=== PATIENT | female | born 1930 | race Caucasian/White ===

== ENCOUNTER 2016-09-03 13:49 | Emergency (ER) ==
[2016-09-03 13:58] VITALS: BP 182/92; TEMP 97.7; BMI 26.6
[2016-09-03] MEDS ORDERED: LIDOCAINE 1 % AMP 5 ML (SUTURES) SUBCUT STA (14:09)
[2016-09-03] MEDS ORDERED: LIDOCAINE 1 % AMP 5 ML (SUTURES) ONE (14:25)
--- NOTE | 2016-09-03 14:35 | ED.PDOC ---
General ED Provider: Dr. RACHELE LAU Chief Complaint: Head Laceration Stated Complaint: head laceration Time Seen by Physician: 14:00 Information Source: Patient Exam Limitations: No limitations Primary Care Provider: JOSÉ ANTONIO GAVIRIA Nursing and Triage Documentation Reviewed and Agree: Yes Review of Systems - Review Of Systems Constitutional: Reports: No symptoms Eyes: Reports: No symptoms Ears, Nose, Mouth, Throat: Reports: No symptoms Respiratory: Reports: No symptoms Cardiac: Reports: No symptoms GI: Reports: No symptoms : Reports: No symptoms Musculoskeletal: Reports: No symptoms, Other Skin: Reports: Other (for head laceration) Neurological: Reports: No symptoms Endocrine: Reports: No symptoms Hematologic/Lymphatic: Reports: No symptoms All Other Systems: Reviewed and Negative Past Medical History - Past Medical History Previously Healthy: Yes Endocrine: Reports: Dyslipidemia Cardiovascular: Reports: None Respiratory: Reports: None Hematological: Reports: None Gastrointestinal: Reports: None Genitourinary: Reports: None Neuro/Psych: Reports: None Musculoskeletal: Reports: None Cancer: Reports: None Last Menstrual Period: N/A - Surgical History General Surgical History: Reports: None - Family History Family History: Reports: None - Social History Smoking Status: Never smoker Hx Substance Use: No Alcohol Screening: None - Immunizations Tetanus Shot up to Date: No Physical Exam - Physical Exam Appearance: Well-appearing, No pain distress, Well-nourished Eyes: FIFI, EOMI, Conjunctiva clear ENT: Ears normal, Nose normal, Oropharynx normal Respiratory: Airway patent, Breath sounds clear, Breath sounds equal, Respirations nonlabored Cardiovascular: RRR, Pulses normal, No rub, No murmur GI/: Soft, Nontender, No masses, Bowel sounds normal, No Organomegaly Musculoskeletal: Normal strength, ROM intact, No edema, No calf tenderness Skin: Warm, Dry, Normal color Neurological: Sensation intact, Motor intact, Reflexes intact, Cranial nerves intact, Alert, Oriented Psychiatric: Affect appropriate, Mood appropriate Procedures - Laceration/Wound Repair No standard instances Wound Description: Linear Wound Length (cm): 5 cm Wound Width: 3mm Wound Depth: 2mm Wound Explored: Clean Wound Irrigated: No Wound Prep: Hibiclens Anesthesia: Lidocaine (2 ml) Undermining: Minimal Wound Margins: Vermilion border aligned Wound Repaired With: Sutures Suture Size and Type: 3 prolene Number of Sutures: 12 Number of Xenia: 0 Layer Closure?: No Critical Care Note - Critical Care Note Total Time (mins): 0 Course - Course Orders, Labs, Meds: Orders Category Date Time Status Lidocaine HCl/Pf [Lidocaine 1 % Amp 5 ml (Sutures)] MEDS 09/03/16 14:25 Discontinued 5 ml .ROUTE .STK-MED ONE Lidocaine HCl/Pf [Lidocaine 1 % Amp 5 ml (Sutures)] MEDS 09/03/16 14:09 Stat 5 ml SUBCUT ONCE STA CT CERVICAL SPINE W/O CONTRAST Stat RADS 09/03/16 14:[address] HEAD W/O CONTRAST Stat RADS 09/03/16 14:09 Ordered Medications Discontinued Medications Generic Name Dose Route Start Last Admin Trade Name Freq PRN Reason Stop Dose Admin Lidocaine HCl 5 ml 09/03/16 14:09 09/03/16 14:33 Lidocaine 1 % Amp 5 Ml (Sutures) SUBCUT 09/03/16 14:10 5 ml ONCE STA Administration Vital Signs: Temp Pulse Resp BP Pulse Ox 09/03/16 13:49 97.7 F 105 H 220 H 182/92 H 95 Departure - Departure Time of Disposition: 03:30 Disposition: HOME SELF-CARE Discharge Problem: Laceration of forehead Qualifiers: Encounter type: initial encounter Qualifier Code: (S01.81XA) Laceration without foreign body of other part of head, initial encounter Closed head injury Qualifiers: Encounter type: initial encounter Qualifier Code: (S09.90XA) Unspecified injury of head, initial encounter Instructions: Head Injury (ED), Laceration (ED) Condition: Good Pt referred to PMD for follow-up: No Additional Instructions: Please call your Family Physician as soon as possible to schedule a follow-up appointment. Allergies/Adverse Reactions: Allergies No Known Allergies Allergy (Unverified 09/03/16 14:00) Home Medications: Ambulatory Orders Aspirin [Aspirin EC] 81 mg PO DAILY 11/06/12 Pravastatin Sodium [Pravachol] 20 mg PO DAILY 11/06/12
--- NOTE | 2016-09-03 15:08 | CT ---
EXAM: CT BRAIN HISTORY: Fall TECHNIQUE: CT brain without intravenous contrast. 5-mm axial sections with Reformations. COMPARISON: None FINDINGS: There is generalized atrophy and at least mild chronic microvascular ischemic change. Early basil g anglia calcification. Brain otherwise is unremarkable without distinct evidence of hemorrhage or lar ge vessel distribution recent ischemic infarction. There is no suggestion of acute hydrocephalus or subdural fluid collection. No mass or mass effect. No skull fracture. Mild mucosal thickening in the a few areas of the visualized paranasal sinuses. Mastoid air cells are aerated. There is a right frontal peripheral scalp contusion. IMPRESSION: 1. No acute intracranial process or injury identified. No skull fracture. 2. Right frontal scalp contusion. 3. Minimal chronic sinusitis.
--- NOTE | 2016-09-03 15:29 | CT ---
EXAM: CT of the cervical spine without contrast History: Head and neck trauma. Technique: Multiplanar CT images through the cervical spine were obtained without the administratio n of IV contrast Findings: The visualized lung apices are free of consolidation. Biapical lung scarring. Bilateral thyroid nodules with the largest seen in the right thyroid measuring 2 cm. The visualized airway r emains patent. Osteopenia. No acute fracture. Minimal anterolisthesis of C5 on C6. Mild multilevel degenerative disc space narrowing. No prevertebral soft tissue swelling. Predental space is not widened. Multil evel bilateral bony neural foraminal narrowing secondary to uncovertebral and facet hypertrophy. Impression: 1. No acute osseous abnormality of the cervical spine. 2. Bilateral thyroid nodules.
== END 2016-09-03 15:35 | disposition home or self-care (01) ==
LOC: ED 13:49
DX: S01.81XA Laceration without foreign body of other part of head, initial encounter (principal); S09.90XA Unspecified injury of head, initial encounter; W19.XXXA Unspecified fall, initial encounter
CPT/HCPCS: 99283

== ENCOUNTER 2020-03-05 09:09 | Inpatient (IN) ==
--- NOTE | 2020-03-05 09:34 | ED.PDOC ---
General ED Provider: Dr. WOLF HUGHES Chief Complaint: Urinary Problem Stated Complaint: States note blood in her urine Last evening. Denies urinary burning, urgency or frequency. Denies flank or suprapubic pain. Denies previous related problems. Time Seen by Physician: 09:20 Mode of Arrival: Walk-In Information Source: Patient Exam Limitations: No limitations Primary Care Provider: JOSÉ ANTONIO GAVIRIA Nursing and Triage Documentation Reviewed and Agree: Yes Does patient meet sepsis criteria?: No If yes, has appropriate treatment been initiated?: No System Inflammatory Response Syndrome: Not Applicable Sepsis Protocol: For patient's 13 years and over: Temp is 96.8 and below OR 101 and greater Pulse >90 BPM Resp >20/minute Acutely Altered Mental Status Are patient's symptoms suggestive of a new infection, such as: -Pneumonia -Skin, Soft Tissue -Endocarditis -UTI -Bone, Joint Infection -Implantable Device -Acute Abdominal Infection -Wound Infection -Meningitis -Blood Stream Catheter Infection -Unknown Complaint Exam UTI Female Complaint/Exam Patient Complains of: Reports Blood in urine Onset/Duration: last evening Symptoms Are: Still present Timing: Intermittent Initial Severity: Moderate Current Severity: Mild Location of Pain: Reports None Associated Signs and Symptoms: Reports Fever, Chills, Flank pain, Dyspareunia and Vaginal discharge Related History: Denies Similar episode Related Surgical History: Reports None CVA Tenderness: No Suprapubic Tenderness: No Review of Systems Review Of Systems Constitutional: Reports No symptoms Eyes: Reports No symptoms Ears, Nose, Mouth, Throat: Reports No symptoms Respiratory: Reports No symptoms Cardiac: Reports No symptoms GI: Reports No symptoms : Reports No symptoms Musculoskeletal: Reports No symptoms Skin: Reports No symptoms Neurological: Reports No symptoms Endocrine: Reports No symptoms Hematologic/Lymphatic: Reports No symptoms All Other Systems: Reviewed and Negative [facility] Female Reproductive History Menstrual Hx Hysterectomy: No Hx Tubal Ligation: No Physical Exam Physical Exam Appearance: Reports Well-appearing and No pain distress Ill-appearing: None Pain Distress: None Eyes: Reports FIFI, EOMI and Conjunctiva clear ENT: Reports Ears normal, Nose normal and Oropharynx normal Respiratory: Reports Airway patent, Breath sounds clear, Breath sounds equal and Respirations nonlabored Cardiovascular: Reports RRR, Pulses normal, No rub and No murmur GI/: Reports Soft, Nontender, No masses, Bowel sounds normal and No Organomegaly Musculoskeletal: Reports Normal strength, ROM intact, No edema and No calf tenderness Skin: Reports Warm, Dry and Normal color Neurological: Reports Sensation intact, Motor intact, Reflexes intact, Cranial nerves intact, Alert and Oriented Psychiatric: Reports Affect appropriate and Mood appropriate Interpretation Radiology Interpretation Exam Interpreted: CXR and CT Scan (There is no ureteral obstruction. There is suspicion for a small soft tissue mass lesion seen along the posterior right side of the urinary bladder. Further evaluation is recommended using a CT scan of the abdomen and pelvis urogram protocol. Diverticular disease of the sigmoid colon without ac) Xray Comments: WNL EKG Interpretation Time of EKG #1: 10:40 Rate: Tachy Rhythm: Sinus Ectopy: None ST Segment: Normal Interpretation: sinus tachycardia Physician Notification Case Discussed Physician Notified: Dr Gaviria: [id number]; Discussed case, Recommendations made/admit Course Course Hematology/Chemistry: 03/05/20 10:00 03/05/20 10:00 Orders, Labs, Meds: Lab Review 03/05/20 03/05/20 03/05/20 09:34 10:00 10:00 WBC 8.55 RBC 3.90 L Hgb 11.8 L Hct 36.6 L MCV 93.8 MCH 30.3 MCHC 32.2 RDW Coeff of Sheron 12.4 Plt Count 182 Immature Gran % (Auto) 0.4 Neut % (Auto) 73.5 Lymph % (Auto) 18.2 [place] % (Auto) 6.7 Eos % (Auto) 0.8 Baso % (Auto) 0.4 Neut # (Auto) 6.3 Lymph # (Auto) 1.6 [place] # (Auto) 0.6 Eos # (Auto) 0.1 Baso # (Auto) 0.0 Immature Gran # (Auto) 0.0 PT INR APTT Sodium 129.5 L Potassium 4.62 Chloride 95.8 L Carbon Dioxide 22.4 Anion Gap 15.92 BUN 27.9 H Creatinine 1.09 Estimated GFR (MDRD) 47.00 BUN/Creatinine Ratio 25.59 Glucose 120.2 H Calcium 9.04 Total Bilirubin 0.47 AST 35.8 ALT 18.4 Alkaline Phosphatase 100.4 Total Protein 7.73 Albumin 4.29 Globulin 3.44 Albumin/Globulin Ratio 1.24 Urine Color Red Urine Clarity Slightly Urine pH 7.0 Ur Specific [place] 1.020 Urine Protein 2+ H Urine Glucose (UA) Negative Urine Ketones Negative Urine Blood 3+ H Urine Nitrite Negative Urine Bilirubin Negative Urine Urobilinogen 0.2 Ur Leukocyte Esterase Negative Urine Microscopic RBC Tntc Urine Microscopic WBC 2-5 Ur Squamous Epith Cells 0-2 03/05/20 10:00 WBC RBC Hgb Hct MCV MCH MCHC RDW Coeff of Sheron Plt Count Immature Gran % (Auto) Neut % (Auto) Lymph % (Auto) [place] % (Auto) Eos % (Auto) Baso % (Auto) Neut # (Auto) Lymph # (Auto) [place] # (Auto) Eos # (Auto) Baso # (Auto) Immature Gran # (Auto) PT 9.6 INR 0.98 APTT 25.6 Sodium Potassium Chloride Carbon Dioxide Anion Gap BUN Creatinine Estimated GFR (MDRD) BUN/Creatinine Ratio Glucose Calcium Total Bilirubin AST ALT Alkaline Phosphatase Total Protein Albumin Globulin Albumin/Globulin Ratio Urine Color Urine Clarity Urine pH Ur Specific [place] Urine Protein Urine Glucose (UA) Urine Ketones Urine Blood Urine Nitrite Urine Bilirubin Urine Urobilinogen Ur Leukocyte Esterase Urine Microscopic RBC Urine Microscopic WBC Ur Squamous Epith Cells Orders Category Date Time Status EKG-(ED ONLY) Stat CARDIO 03/05/20 09:42 Completed IV [ED IV/MEDIPORT/POWERPORT] .ONCE EMERGENCY 03/05/20 09:45 Active CBC W/ AUTO DIFF Stat LAB 03/05/20 10:00 Completed CMP [COMPREHENSIVE METABOLIC PANEL] Stat LAB 03/05/20 10:00 Completed PARTIAL THROMBOPLASTIN TIME Stat LAB 03/05/20 10:00 Completed PT WITH INR Stat LAB 03/05/20 10:00 Completed UA [URINALYSIS C & S IF INDICATED] Stat LAB 03/05/20 09:34 Completed 0.9 % Sodium Chloride [Saline Flush] MEDS 03/05/20 09:44 Active 1 syr IVF PRN PRN Hydralazine HCl [Apresoline] MEDS 03/05/20 10:48 Discontinued 25 mg PO ONCE STA Labetalol HCl [Trandate] MEDS 03/05/20 11:42 Discontinued 10 mg IVP ONCE STA Sodium Chloride 0.9% [Sodium Chloride] 1,000 ml MEDS 03/06/20 09:00 Ordered IV DAILY CHEST, 2 VIEWS PA & LAT Stat RADS 03/05/20 09:[address] ABD/PEL WO RENAL STONE PROT Stat RADS 03/05/20 09:42 Completed Medications Generic Name Dose Route Start Last Admin Trade Name Freq PRN Reason Stop Dose Admin Sodium Chloride 1,000 mls @ 75 mls/hr 03/06/20 09:00 Sodium Chloride IV DAILY LIDIA Sodium Chloride 1 syr 03/05/20 09:44 0.9% Sodium Chloride 10 Ml Disp.Syrin IVF PRN PRN To flush IV Discontinued Medications Generic Name Dose Route Start Last Admin Trade Name Freq PRN Reason Stop Dose Admin Hydralazine HCl 25 mg 03/05/20 10:48 03/05/20 10:55 Hydralazine Hcl 50 Mg Tablet PO 03/05/20 10:49 25 mg ONCE STA Administration Labetalol HCl 10 mg 03/05/20 11:42 Labetalol Hcl 100 Mg/20 Ml Mdv IVP 03/05/20 11:43 ONCE STA Vital Signs: Temp Pulse Resp BP Pulse Ox 03/05/20 09:29 249/132 H 03/05/20 09:09 96.3 F L 108 H 17 236/114 H 96 Discharge Plan Discharge Prescriptions: No Action pravastatin 20 MG tablet 20 mg PO DAILY RF: 0 ED Provider: WOLF HUGHES Physician Progress Note: Monitored patient after resting for 30 -60 min. Asymptomatic. BP 210/120 []
[2020-03-05 09:38] LABS: BILIRUBIN,URINE Negative (NEGATIVE); CLARITY,URINE Slightly (CLEAR); COLOR,URINE Red (YELLOW); GLUCOSE, URINE (UA) Negative (NEGATIVE); KETONES,URINE Negative (NEGATIVE); LEUKOCYTE ESTERASE ,URINE Negative (NEGATIVE); NITRITE,URINE Negative (NEGATIVE); PROTEIN,URINE 2+ (NEGATIVE); URINE, BLOOD 3+ (NEGATIVE); UROBILINOGEN,URINE 0.2 (0.2)
[2020-03-05 09:52] LABS: SQUAMOUS EPITHELIAL CELL,UR 0-2 (0-5); URINE RBC, MICROSCOPIC TNTC (0-2)
[2020-03-05 10:02] LABS: BASOPHILS % (AUTO) 0.4 % (0.0-3.0); EOSINOPHILS # (AUTO) 0.1 K/ul (0.0-0.7); EOSINOPHILS % (AUTO) 0.8 % (0.0-7.0); HEMATOCRIT 36.6 % (37.0-47.0); HEMOGLOBIN 11.8 g/dl (12.0-16.0); IMMATURE GRANULOCYTE % (AUTO) 0.4 % (0.0-5.0); LYMPHOCYTES # (AUTO) 1.6 K/uL (0.60-3.4); LYMPHOCYTES % (AUTO) 18.2 (10.0-50.0); MEAN CORPUSCULAR HEMOGLOBIN 30.3 pg (27.0-31.0); MEAN CORPUSCULAR HGB CONC 32.2 (31.8-35.4); MEAN CORPUSCULAR VOLUME 93.8 fl (81.0-99.0); MONOCYTES # (AUTO) 0.6 K/uL (0.4-2.0); MONOCYTES % (AUTO) 6.7 (0-10); NEUTROPHILS # (AUTO) 6.3 K/ul (2.0-6.9); NEUTROPHILS % (AUTO) 73.5 % (42.2-75.2); PLATELET COUNT 182 10^3/uL (140-440); RDW COEFFICIENT OF VARIATION 12.4 % (11.6-14.8); WHITE BLOOD COUNT 8.55 K/ul (4.6-10.2)
[2020-03-05 10:14] LABS: ALANINE AMINOTRANSFERASE 18.4 U/L (0-35); ALBUMIN 4.29 g/dL (3.5-5.0); ALKALINE PHOSPHATASE 100.4 U/L (53-141); ASPARTATE AMINO TRANSFERASE 35.8 U/L (14-36); BILIRUBIN,TOTAL 0.47 mg/dL (0.2-1.3); BLOOD UREA NITROGEN 27.9 mg/dL (7-17); CALCIUM 9.04 mg/dL (8.4-10.2); CARBON DIOXIDE 22.4 mmol/L (22-30.0); CHLORIDE 95.8 mmol/L (98-107); CREATININE 1.09 mg/dL (0.60-1.30); GLUCOSE 120.2 mg/dL (74-106); POTASSIUM 4.62 mmol/L (3.5-5.1); SODIUM 129.5 mmol/L (134.5-145); TOTAL PROTEIN 7.73 g/dL (6.3-8.2)
[2020-03-05 10:16] LABS: PARTIAL THROMBOPLASTIN TIME 25.6 SEC (23.9-40.0); PROTHROMBIN TIME 9.6 SEC (9.3-11.0)
--- NOTE | 2020-03-05 10:44 | CT ---
EXAM: CT scan of the abdomen and pelvis without contrast HISTORY: Hematuria TECHNIQUE: Helical imaging of the abdomen and pelvis was performed without contrast. 3 mm thin axia l images and coronal and sagittal reconstructions were provided for interpretation. FINDINGS: The liver, spleen, pancreas, kidneys appear normal. The proximal ureters are normal size. Multiple cysts are seen throughout the kidneys. The small and large bowel loops are normal caliber . There is no free air. There is no free fluid seen within the pelvis. There is suspicion for a focus of soft tissue thicken ing along the posterior right corner of the urinary bladder. The findings are seen on axial image nu mber [id number]. The findings measure approximately 2.1 cm transverse, 1.4 cm AP. Numerous diverticula are seen throughout the sigmoid colon without acute inflammation. The appendix appears normal. Lung ba ses are clear. No lytic or blastic lesions are seen within the osseous structures. IMPRESSION: There is no ureteral obstruction. There is suspicion for a small soft tissue mass lesion seen along the posterior right side of the uri nary bladder. Further evaluation is recommended using a CT scan of the abdomen and pelvis urogram pr otocol. Diverticular disease of the sigmoid colon without acute inflammation.
--- NOTE | 2020-03-05 10:47 | DI ---
EXAM: Two-view chest HISTORY: Hypertension TECHNIQUE: Frontal and lateral views of the chest were obtained. FINDINGS: The heart is normal size. Lungs are clear. The pulmonary vasculature appears normal. Th e costophrenic angles are sharp. IMPRESSION: No active cardiopulmonary disease.
[2020-03-05] MEDS ORDERED: APRESOLINE PO STA (10:48)
[2020-03-05] MEDS ORDERED: TRANDATE IVP STA (11:42)
[2020-03-05] MEDS ORDERED: VASOTEC IV IVP STA (11:55)
[2020-03-05] MEDS: SODIUM CHLORIDE 1,000 ML IV SCH ×3 (12:19→23:44)
[2020-03-05] MEDS ORDERED: ZOFRAN 4 MG/2 ML IVP PRN ×2 (12:24→21:55)
[2020-03-05] MEDS ORDERED: TYLENOL PO PRN (12:24)
[2020-03-05] MEDS ORDERED: TRANDATE ONE ×2 (12:55→12:57)
[2020-03-05] MEDS ORDERED: TRANDATE 100 MG in SODIUM CHLORIDE 80 ML IV SCH (13:00)
[2020-03-05 14:24] VITALS: BMI 12.4
[2020-03-05] MEDS ORDERED: TRANDATE PO STA (16:06)
[2020-03-05] MEDS: VASOTEC IV IVP PRN (18:09)
[2020-03-05] MEDS: TRANDATE PO SCH (21:13)
[2020-03-05] MEDS ORDERED: XANAX PO STA (21:51)
[2020-03-05] MEDS ORDERED: NORVASC PO ONE (21:56)
[2020-03-06] MEDS: VASOTEC IV IVP PRN (00:20)
[2020-03-06] MEDS ORDERED: CATAPRES PO STA (01:48)
[2020-03-06] MEDS ORDERED: TRANDATE 100 MG in SODIUM CHLORIDE 80 ML IV SCH (01:54)
[2020-03-06] MEDS ORDERED: TRANDATE ONE (02:08)
[2020-03-06] MEDS ORDERED: CATAPRES PO PRN (04:14)
[2020-03-06 05:11] VITALS: TEMP 97.7
[2020-03-06 06:39] LABS: BASOPHILS % (AUTO) 0.1 % (0.0-3.0); EOSINOPHILS % (AUTO) 0.1 % (0.0-7.0); HEMATOCRIT 31.8 % (37.0-47.0); HEMOGLOBIN 10.9 g/dl (12.0-16.0); IMMATURE GRANULOCYTE % (AUTO) 0.3 % (0.0-5.0); LYMPHOCYTES # (AUTO) 0.9 K/uL (0.60-3.4); LYMPHOCYTES % (AUTO) 6.2 (10.0-50.0); MEAN CORPUSCULAR HEMOGLOBIN 30.2 pg (27.0-31.0); MEAN CORPUSCULAR HGB CONC 34.3 (31.8-35.4); MEAN CORPUSCULAR VOLUME 88.1 fl (81.0-99.0); MONOCYTES # (AUTO) 0.9 K/uL (0.4-2.0); MONOCYTES % (AUTO) 6.1 (0-10); NEUTROPHILS # (AUTO) 12.6 K/ul (2.0-6.9); NEUTROPHILS % (AUTO) 87.2 % (42.2-75.2); PLATELET COUNT 164 10^3/uL (140-440); RDW COEFFICIENT OF VARIATION 11.9 % (11.6-14.8); RED BLOOD COUNT 3.61 10^6/ul (4.20-5.40); WHITE BLOOD COUNT 14.39 K/ul (4.6-10.2)
[2020-03-06 06:50] LABS: ALANINE AMINOTRANSFERASE 18.6 U/L (0-35); ALBUMIN 4.07 g/dL (3.5-5.0); ALKALINE PHOSPHATASE 94.2 U/L (53-141); ASPARTATE AMINO TRANSFERASE 43.1 U/L (14-36); BILIRUBIN,TOTAL 0.71 mg/dL (0.2-1.3); BLOOD UREA NITROGEN 20.6 mg/dL (7-17); CALCIUM 9.16 mg/dL (8.4-10.2); CARBON DIOXIDE 22.4 mmol/L (22-30.0); CHLORIDE 88.8 mmol/L (98-107); CREATININE 0.96 mg/dL (0.60-1.30); GLUCOSE 135.3 mg/dL (74-106); POTASSIUM 3.87 mmol/L (3.5-5.1); SODIUM 120.6 mmol/L (134.5-145); TOTAL PROTEIN 7.33 g/dL (6.3-8.2)
[2020-03-06 07:21] LABS: THYROID STIMULATING HORMONE 2.06 uIU/L (0.465-4.68)
[2020-03-06] MEDS ORDERED: CATAPRES PO SCH (09:00)
[2020-03-06] MEDS ORDERED: PRAVACHOL PO SCH (09:00)
[2020-03-06] MEDS ORDERED: COZAAR PO SCH (09:00)
[2020-03-06 09:45] LABS: HEMOGLOBIN 9.8 g/dl (12.0-16.0); IMMATURE GRANULOCYTE # (AUTO) 0.1 (0.0-1.0); IMMATURE GRANULOCYTE % (AUTO) 0.4 % (0.0-5.0); LYMPHOCYTES # (AUTO) 0.9 K/uL (0.60-3.4); MEAN CORPUSCULAR HGB CONC 33.8 (31.8-35.4); MEAN CORPUSCULAR VOLUME 88.7 fl (81.0-99.0); MONOCYTES # (AUTO) 0.7 K/uL (0.4-2.0); MONOCYTES % (AUTO) 6.6 (0-10); NEUTROPHILS # (AUTO) 9.5 K/ul (2.0-6.9); PLATELET COUNT 155 10^3/uL (140-440); RDW COEFFICIENT OF VARIATION 11.9 % (11.6-14.8); RED BLOOD COUNT 3.27 10^6/ul (4.20-5.40); WHITE BLOOD COUNT 11.19 K/ul (4.6-10.2)
[2020-03-06] MEDS: XANAX PO SCH ×2 (09:56→20:10)
[2020-03-06] MEDS: TRANDATE PO SCH ×2 (09:56→20:10)
[2020-03-06 09:59] LABS: ALANINE AMINOTRANSFERASE 15.1 U/L (0-35); ALBUMIN 2.99 g/dL (3.5-5.0); ALKALINE PHOSPHATASE 69.4 U/L (53-141); ASPARTATE AMINO TRANSFERASE 35.1 U/L (14-36); BILIRUBIN,TOTAL 0.54 mg/dL (0.2-1.3); BLOOD UREA NITROGEN 18.6 mg/dL (7-17); CALCIUM 7.18 mg/dL (8.4-10.2); CARBON DIOXIDE 19.6 mmol/L (22-30.0); CHLORIDE 96.6 mmol/L (98-107); CREATININE 0.82 mg/dL (0.60-1.30); GLUCOSE 102.8 mg/dL (74-106); POTASSIUM 3.16 mmol/L (3.5-5.1); SODIUM 124.5 mmol/L (134.5-145); TOTAL PROTEIN 5.82 g/dL (6.3-8.2)
--- NOTE | 2020-03-06 11:05 | PCM.PROG ---
Attending Provider: ATTENDING PROVIDER: Dr. JOSÉ ANTONIO GAVIRIA This patient is seen with Cassy Ortega, Nurse Practitioner. DATE OF SERVICE: 03/06/20 SUBJECTIVE: This 89 year old /WHITE F was hospitalized 03/05/20. The patient is resting comfortably. The patient states she has had blood in urine the last week at home. Sodium dropped today to 120. Kidney function is stable. Blood pressure is up through the night which required IV Labetalol. This morning her blood pressure is 128/65. REVIEW OF SYSTEMS: CONSTITUTIONAL: No night sweats. No fatigue, malaise, lethargy. No fever or chills. Weakness. HEENT: Eyes: No visual changes. No eye pain. No eye discharge. ENT: No runny nose. No epistaxis. No sinus pain. No odynophagia. No congestion. RESPIRATORY: No cough, no congestion. No hemoptysis. No shortness of breath. CARDIOVASCULAR: No angina symptoms. No CHF symptoms. No atypical chest pain for CAD. No palpitations. No orthopnea.. GASTROINTESTINAL: No abdominal pain. No nausea or vomiting. No diarrhea or constipation. No hematemesis. No hematochezia. GENITOURINARY: No urgency. No frequency. No dysuria. Hematuria. No obstructive symptoms. No discharge. No pain. No significant abnormal bleeding. MUSCULOSKELETAL: No musculoskeletal pain; no joint swelling. NEUROLOGICAL: Awake, alert, oriented to time, place and person. No headache. No neck pain. No syncope. No seizures. No dizziness. PSYCHIATRIC: Not anxious. No depression. No suicidal thoughts. No homicidal t houghts. SKIN: No rash. No lesions. No wounds. ENDOCRINE: No unexplained weight loss. No weight gain. HEMATOLOGIC/LYMPHATIC: No anemia. No purpura. No petechiae. No prolonged or excessive bleeding. No palpable lymph nodes. PHYSICAL EXAMINATION: GENERAL: The patient is awake, alert and oriented, lying in bed in no distress. VITAL SIGNS: Temperature 97.7 F, Pulse 76, Respiratory Rate 22, BP 128/65, Pulse Ox 95% HEENT: Head normocephalic, atraumatic. Eyes: Extraocular muscles are intact. Pupils are equal, round and reactive to light and accommodation. Ears: No lesions. Nose appeared normal. Throat: No exudate or erythema. NECK: Supple. No JVD, no carotid bruit. No lymphadenopathy or thyromegaly. LUNGS: Diminished breath sounds. Clear to auscultation. Percussion note normal. Chest symmetrical. HEART: S1, S2, no S3. No murmurs. No cyanosis or clubbing. No ascites. Pulses: Dorsalis pedis and posterior tibial pulses +1 to +2 both sides. ABDOMEN: Soft. Non-tender. Bowel sounds active. No CVA tenderness. No mass felt. EXTREMITIES: No edema. Full range of motion of all extremities, equal. NEUROLOGIC: No focal deficit. Cranial nerves II through XII are grossly intact. No headache, no double vision or headache. SKIN: Not dry. Intact. Turgor-normal. LYMPHATIC: No palpable lymph nodes/no lymphedema. MUSCULOSKELETAL: Normal joints with no swelling. Muscle tone is normal. LAB REVIEW: 03/06/20 05:25 03/06/20 05:25 03/06/20 05:25: Sodium 120.6 L, Potassium 3.87, Chloride 88.8 L, Carbon Dioxide 22.4, Anion Gap 13.27, BUN 20.6 H, Creatinine 0.96, Estimated GFR (MDRD) 55.00, BUN/Creatinine Ratio 21.45, Glucose 135.3 H, Calcium 9.16, Total Bilirubin 0.71, AST 43.1 H, ALT 18.6, Alkaline Phosphatase 94.2, Total Protein 7.33, Albumin 4.07, Globulin 3.26, Albumin/Globulin Ratio 1.24, TSH 2.060 03/06/20 05:25: WBC 14.39 H D, RBC 3.61 L, Hgb 10.9 L, Hct 31.8 L, MCV 88.1 D, MCH 30.2, MCHC 34.3, RDW Coeff of Sheron 11.9, Plt Count 164, Immature Gran % (Auto) 0.3, Neut % (Auto) 87.2 H, Lymph % (Auto) 6.2 L, [place] % (Auto) 6.1, Eos % (Auto) 0.1, Baso % (Auto) 0.1, Neut # (Auto) 12.6 H, Lymph # (Auto) 0.9, [place] # (Auto) 0.9, Eos # (Auto) 0.0, Baso # (Auto) 0.0, Immature Gran # (Auto) 0.0 03/05/20 10:00: PT 9.6, INR 0.98, APTT 25.6 03/05/20 10:00: Sodium 129.5 L, Potassium 4.62, Chloride 95.8 L, Carbon Dioxide 22.4, Anion Gap 15.92, BUN 27.9 H, Creatinine 1.09, Estimated GFR (MDRD) 47.00, BUN/Creatinine Ratio 25.59, Glucose 120.2 H, Calcium 9.04, Total Bilirubin 0.47, AST 35.8, ALT 18.4, Alkaline Phosphatase 100.4, Total Protein 7.73, Albumin 4.29, Globulin 3.44, Albumin/Globulin Ratio 1.24 03/05/20 10:00: WBC 8.55, RBC 3.90 L, Hgb 11.8 L, Hct 36.6 L, MCV 93.8, MCH 30.3, MCHC 32.2, RDW Coeff of Sheron 12.4, Plt Count 182, Immature Gran % (Auto) 0.4, Neut % (Auto) 73.5, Lymph % (Auto) 18.2, [place] % (Auto) 6.7, Eos % (Auto) 0.8, Baso % (Auto) 0.4, Neut # (Auto) 6.3, Lymph # (Auto) 1.6, [place] # (Auto) 0.6, Eos # (Auto) 0.1, Baso # (Auto) 0.0, Immature Gran # (Auto) 0.0 03/05/20 09:34: Urine Color Red, Urine Clarity Slightly, Urine pH 7.0, Ur Specific [place] 1.020, Urine Protein 2+ H, Urine Glucose (UA) Negative, Urine Ketones Negative, Urine Blood 3+ H, Urine Nitrite Negative, Urine Bilirubin Negative, Urine Urobilinogen 0.2, Ur Leukocyte Esterase Negative, Urine Microscopic RBC Tntc, Urine Microscopic WBC 2-5, Ur Squamous Epith Cells 0-2 ASSESSMENT: Please see below. 1. Hematuria 2. Lesion on bladder per CT 3. Hyponatremia 4. Uncontrolled hypertension 5. Dyslipidemia PLAN: 1. Increase fluids to 75cc 2. Will discuss with radiology further test for renal arteries and bladder. 3. Restart PO Labetalol Plan and coordination of the patient's care discussed in the presence of Prosthetics Assistant and nurse. SCRIBED BY: MARYAN EARLY Obstetrics Nurse scribed while in presence of service performed by Dr. Gaviria/Cassy Ortega APRN on 03/06/20 ([id number])
[2020-03-06] MEDS: SODIUM CHLORIDE 1,000 ML IV SCH ×3 (12:56→19:30)
--- NOTE | 2020-03-06 13:23 | CT ---
EXAM: CT of the abdomen and pelvis with and without contrast (CT urogram) History: Hematuria, bladder mass. Comparison: CT abdomen pelvis 03/05/2020 Technique: Multiplanar CT images through the abdomen pelvis were obtained with and without the admin istration of IV contrast. MIP images and 3-D reconstructions were also acquired. Findings: Lung bases are free of consolidation. Trace bilateral pleural effusions. No acute osseou s abnormalities. Degenerative changes of the spine. There is reflux of contrast into the IVC and hepatic veins. No gallstones identified by CT. No karri l stones. Bilateral renal cysts are again seen. Moderate right hydronephrosis again identified. No obstructing ureteral calculi. The bladder is distended. 2.2 cm mass or hematoma at the right base of the bladder. Atherosclerotic vascular calcifications. Mild to moderate narrowing of the proximal left renal artery and mild narrowing of the proximal right renal artery with calcific plaque. No ministerio wel obstruction. No free air and no ascites. The uterus is atrophic. No perirectal inflammation. Scattered colonic stool. Colonic diverticulosis. The appendix is normal. The pancreas and adrenal glands are unremarkable. No free air and no ascites. No pathologically enlarged lymph nodes. Impression: 1. Intraluminal bladder hematoma or soft tissue bladder mass. Recommend cystoscopy. 2. Persistent moderate right hydronephrosis could be related to a bladder tumor or ureteral mass. A lso recommend direct visualization. 3. Colonic diverticulosis. 4. Distended bladder. 5. Reflux of contrast into the IVC and hepatic veins could indicate some degree of right heart strai n.
--- NOTE | 2020-03-06 14:43 | PN ---
DATE OF SERVICE: 03/05/20 SUBJECTIVE: The patient was admitted through the emergency room with hematuria. The patient's other problem is hypertensive urgency. Blood pressure was recorded as more than 240. The patient was given Hydralazine 25 in the emergency room and then later on Trandate IV drip. The patient's blood pressure on the floor was recorded as 190. Continue the IV Trandate and put her on Trandate 100 mg b.i.d. along with Vasotec to be given 1.25 mg IV q.6hr for systolic blood pressure 150. She will be given Amlodipine 5 mg p.o. tonight and she will be started on 50 mg of Losartan q.a.m. The patient's cardiovascular status is stable with no evidence of CHF or coronary insufficiency, probably has a soft mass adjacent to her urinary bladder. Dr. Gutiérrez has already been called. He will see the patient probably on . The patient's cardiovascular and respiratory status stable for now. The patient has no signs or symptoms of Covid-19. Condition is otherwise stable TIME SPENT: More than 30 minutes. Plan and coordination of the patient's care discussed in the presence of nurse. NANCY
--- NOTE | 2020-03-06 15:00 | HP ---
DATE OF SERVICE: 03/05/20 HISTORY OF PRESENT ILLNESS: This is an 89-year-old white female who states she has had blood in her urine off and on for the past week. Denies any dysuria, urgency or frequency. Denies any flank or suprapubic pain. No history of kidney stones. The patient is confused today which is not her baseline. PAST MEDICAL HISTORY: Chronic anemia Chronic kidney disease, Stage 2 to 3; she has previously refused a nephrologic referral Insomnia and anxiety History of thyroid nodule; she refuses ultrasound or referral to endocrinology Dyslipidemia GERD Hypertension PAST SURGICAL HISTORY: Thyroid nodule, biopsy [place] [address] Zhao. She has refused any further evaluation. REVIEW OF SYSTEMS: CONSTITUTIONAL: No night sweats. No fatigue, malaise, lethargy. No fever or chills. HEENT: Eyes: No visual changes. No eye pain. No eye discharge. ENT: No runny nose. No epistaxis. No sinus pain. No sore throat. No odynophagia. No ear pain. No congestion. RESPIRATORY: No cough, no congestion. No hemoptysis. No shortness of breath. CARDIOVASCULAR: No angina symptoms. No CHF symptoms. No atypical chest pain for CAD. No palpitations. No PND. No orthopnea. GASTROINTESTINAL: No abdominal pain. No nausea or vomiting. No diarrhea or constipation. No hematemesis. No hematochezia. GENITOURINARY: Hematuria. No urgency. No frequency. No dysuria. No obstructive symptoms. No discharge. No pain. No significant abnormal bleeding. MUSCULOSKELETAL: No musculoskeletal pain. No joint swelling. No arthritis. NEUROLOGICAL: Confusion. No headache. No neck pain. No syncope. No seizures. No dizziness. PSYCHIATRIC: Not anxious. No depression. No suicidal thoughts. No homicidal thoughts. SKIN: No rash. No lesions. No wounds. ENDOCRINE: No unexplained weight loss. No weight gain. HEMATOLOGIC/LYMPHATIC: No anemia. No purpura. No petechiae. No prolonged or excessive bleeding. No palpable lymph nodes. PERSONAL/FAMILY/SOCIAL HISTORY: She lives at home with her . He has severe dementia and requires 24 hour care. She cares for him mostly by herself. She said there is a caregiver at night. She no longer drives. She has two very involved daughters. Nonsmoker. No alcohol or ilicit drug use. MEDICATIONS: Pravastatin 20 mg p.o. daily ALLERGIES: NKDA PHYSICAL EXAMINATION: GENERAL: The patient is alert, oriented to person only. VITAL SIGNS: Temperature 96.3, heart rate 108, respirations 17, blood pressure 249/132, pulse ox 96%. HEENT: Head normocephalic, atraumatic. Eyes: Extraocular muscles are intact. Pupils are equal, round and reactive to light and accommodation. Ears: No lesions. Nose appeared normal. Throat: No exudate or erythema. NECK: Supple. No JVD, no carotid bruit. No lymphadenopathy or thyromegaly. LUNGS: Diminished breath sounds. Clear to auscultation. Percussion note normal. Chest symmetrical. HEART: S1, S2, no S3. No murmur. No cyanosis or clubbing. No ascites. Pulses: Dorsalis pedis and posterior tibial pulses +1 to +2 bilaterally. ABDOMEN: Soft. No palpable abdominal tenderness otherwise normal. Bowel sounds active. No CVA tenderness. No mass felt. EXTREMITIES: No edema. Full range of motion of all extremities, equal. NEUROLOGIC: No focal deficit. Cranial nerves II through XII are grossly intact. No headache, no double vision or headache. SKIN: Not dry. Intact. Turgor - normal. LYMPHATIC: No palpable lymph nodes/no lymphedema. MUSCULOSKELETAL: Normal joints with no swelling. Muscle tone is normal. LABS: White count 8.55, hemoglobin 11.8, hematocrit 36.6, platelets 182. Sodium 129, potassium 4.6, BUN 27, creatinine 1.09, glucose 120. AST 35, ALT 18, urine is red with a pH of 7.0, 2+ protein, negative glucose, 3+ blood, negative leuks. INR 0.98. ASSESSMENT: 1. Hypertensive urgency. 2. Hematuria. 3. Anxiety. 4. Change in mental status. Please Note: CT of the abdomen and pelvis without contrast showed a thickening of the bladder. Further evaluation is needed to rule out mass. PLAN: 1. We will admit. 2. Routine telemetry. 3. Will order CBC, CMP daily. 4. Normal Saline IV at 75 cc/hr. 5. Regular diet. 6. Give Labetalol 10 mg IV push times one. 7. The patient is not on any blood pressure medicine at home. Vasotec 1.25 mg IV q.6hr p.r.n. 8. Urine for culture and sensitivity. 9. CBC, CMP daily. 10. Fall precautions. 11. Will do CT of the abdomen and pelvis with and without contrast to be done in the a.m. TIME SPENT: More than 70 minutes. MTDD
[2020-03-06] MEDS ORDERED: K-DUR PO STA (15:19)
[2020-03-06] MEDS ORDERED: K-DUR PO SCH (17:30)
[2020-03-06 18:45] VITALS: BP 108/56
[2020-03-06] MEDS ORDERED: NORVASC PO SCH (21:00)
--- NOTE | 2020-03-14 13:52 | DS ---
DATE OF SERVICE: 03/06/2020 FINAL DIAGNOSIS: 1. Bladder mass with right hydronephrosis, hematoma versus malignancy 2. Right hydronephrosis 3. Hypertension 4. Dementia 5. Hematuria DISCHARGE INSTRUCTIONS: Transfer to [facility]. MEDICATIONS AT DISCHARGE: Pravastatin 20mg PO daily HOSPITAL COURSE: 89 year old white female who has been living at home on her own. She presented to the emergency room with complaining of hematuria off and on for the past week. Denies any dysuria or increase in frequency or urgency. U/A showed vikram hematuria. CT abdomen done in the ER initially without contrast showed the bladder thickening. The next morning CT of the abdomen and pelvis with and without contrast along with urogram showed that she had an intraluminal bladder hematoma versus mass with right hydronephrosis could not rule out ureteral mass. Also while in the emergency room blood pressure was up to 243/139. She was admitted and given Labetalol IV. Over the course of the next 16 hours she was able to switched over to Labetalol 100mg PO BID as well as Losartan 50mg daily and she has tolerated this well. She has Clonidine 0.1mg BID PRN but has not needed it. U/A showed no signs of infection. After the findings of the abnormal CAT scan with right hydronephrosis and possible lesion we initially attempted to transfer to [facility] which we were told they were not accepting any patients. We then attempted to transfer to [facility] they were not accepting any patients and [facility] would not either due to no Urological coverage. She has granddaughter that works as a nurse state manager at [employer] and they were able to arrange a transfer for a urological consult. She will be transferred. Blood pressure is stable and labs are stable. She has no had any vikram hematuria since admission to the hospital. Again she denies any pain. She does have some intermittent confusion likely due to age. She will be discharged to [facility] and we will followup with her after discharge. TIME SPENT: More than 60 minutes. NANCY
--- NOTE | 2020-03-14 14:50 | PN ---
DATE OF SERVICE: 03/06/2020 SUBJECTIVE: The patient had severe hypertension last night. The patient's blood pressure was recorded as 210/110. The patient was somewhat confused. She had nausea and vomiting and hypertensive encephalopathy symptoms were suspected. 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 The patient's blood pressure then came down within half an hour to 170 systolic. The patient had no other neurological symptoms. She was feeling better. She was earlier given 0.5mg of Xanax. The patient was given Norvasc 5mg, Trandate 100mg PO on the floor. The patient is going to be given Losartan 50mg in the morning along with Trandate 100mg PO twice a day. REVIEW OF SYSTEMS: CONSTITUTIONAL: No night sweats. No fatigue, malaise, lethargy. No fever or chills. HEENT: Eyes: No visual changes. No eye pain. No eye discharge. ENT: No runny nose. No epistaxis. No sinus pain. No sore throat. No odynophagia. No congestion. RESPIRATORY: No cough, no congestion. No hemoptysis. No shortness of breath. CARDIOVASCULAR: No angina symptoms. No CHF symptoms. No atypical chest pain for CAD. No palpitations. No PND. No orthopnea. GASTROINTESTINAL: No abdominal pain. No nausea or vomiting. No diarrhea or constipation. No hematemesis. No hematochezia. GENITOURINARY: No urgency. No frequency. No dysuria. No hematuria. No obstructive symptoms. No discharge. No pain. No significant abnormal bleeding. MUSCULOSKELETAL: No musculoskeletal pain; no joint swelling. NEUROLOGICAL: No headache. No neck pain. No syncope. No seizures. No dizziness. PSYCHIATRIC: Not anxious. No depression. No suicidal thoughts. No homicidal thoughts. SKIN: No rash. No lesions. No wounds. ENDOCRINE: No unexplained weight loss. No weight gain. HEMATOLOGIC/LYMPHATIC: No anemia. No purpura. No petechiae. No prolonged or excessive bleeding. No palpable lymph nodes. PHYSICAL EXAMINATION: HEENT: Head normocephalic, atraumatic. Eyes: Extraocular muscles are intact. Pupils are equal, round and reactive to light and accommodation. Ears: No lesions. Nose appeared normal. Throat: No exudate or erythema. NECK: Supple. No JVD, no carotid bruit. No lymphadenopathy or thyromegaly. LUNGS: Clear to auscultation. Percussion note normal. Chest symmetrical. HEART: S1, S2, no S3. No murmurs. No cyanosis or clubbing. No ascites. Pulses: Dorsalis pedis and posterior tibial pulses +1 to +2 bilaterally. ABDOMEN: Soft. Nontender. Bowel sounds active. No CVA tenderness. No mass felt. EXTREMITIES: No edema. Full range of motion of all extremities, equal. NEUROLOGIC: No focal deficit. Cranial nerves II through XII are grossly intact. No headache, no double vision or headache. Normal. SKIN: Not dry. Intact. Turgor - normal. LYMPHATIC: No palpable lymph nodes/no lymphedema. MUSCULOSKELETAL: Normal joints with no swelling. Muscle tone is normal. ASSESSMENT: 1. Hypertensive urgency, by drip if Nicardipine 5mg per hour was kept ready and didn't need it. Telemetry barely showed patient's heart rhythm between 80-90 per minute. No acute changes were noted through EKG. Time spent in the morning and during the night was approximately two hours. The patient was again seen and examined with the Nurse Practitioner and the patient's condition is stable. During afternoon hours [facility] was called along with [facility] and [facility] and had called a lot other hospitals and only hospital which had a bed was [facility] in [place], [place] and we talked to the hospitalist over there. There was no urology erp implementation consultant so they refused to accept the patient. Advised us to call in the morning. The daughter of the patient was made aware of the fact that we have failed to get her transferred anywhere. Daughter wanted her to be transferred to [facility] where daughter works as a surgical nurse. Dr. Lake who is staff at [facility] was called again and he has been consult with the patient on and could do a cystoscopy. This patient's cardiovascular status is stable. She has no evidence of CHF or coronary insufficiency. Approximately 7:00-8:00 in the evening I got a called from [place] from [place] who is in charge transfer center in [facility] and I discussed the case and he accepted the transfer as urologist had already accept the transfer prior to that. CONDITION: Stable. 03/05/2020: Level 5 03/06/2020: D as in discharge Plan and coordination of the patient's care discussed in the presence of nurse. NANCY
== END 2020-03-06 20:20 | disposition short-term general hospital (02) | DRG 687 ==
LOC: ED 09:09 → MEDSURG A 12:12
PROVIDERS: ADMIT Internal Medicine; ATTEND Internal Medicine
DX: N32.9 Bladder disorder, unspecified; E87.1 Hypo-osmolality and hyponatremia; R41.82 Altered mental status, unspecified; N13.30 Unspecified hydronephrosis; D41.4 Neoplasm of uncertain behavior of bladder; R50.9 Fever, unspecified; F03.90 Unspecified dementia, unspecified severity, without behavioral disturbance, psychotic disturbance, mood disturbance, and anxiety; R31.9 Hematuria, unspecified; F41.9 Anxiety disorder, unspecified; E78.5 Hyperlipidemia, unspecified

== ENCOUNTER 2020-12-25 10:43 | Inpatient (IN) ==
[2020-12-25 11:23] LABS: BORDETELLA PARAPERTUSSIS (PCR) NOT DETECTED (NOT DETECT); BORDETELLA PERTUSSIS (PCR) NOT DETECTED (NOT DETECT); CHLAMYDIA PNEUMONIAE (PCR) NOT DETECTED (NOT DETECT); CORONAVIRUS 229E (PCR) NOT DETECTED (NOT DETECT); CORONAVIRUS HKU1 (PCR) NOT DETECTED (NOT DETECT); CORONAVIRUS NL63 (PCR) NOT DETECTED (NOT DETECT); CORONAVIRUS OC43 (PCR) NOT DETECTED (NOT DETECT); HUMAN METAPNEUMOVIRUS (PCR) NOT DETECTED (NOT DETECT); INFLUENZA B (PCR) NOT DETECTED (NOT DETECT); MYCOPLASMA PNEUMONIAE (PCR) NOT DETECTED (NOT DETECT); PARAINFLUENZA VIRUS 1 (PCR) NOT DETECTED (NOT DETECT); PARAINFLUENZA VIRUS 2 (PCR) NOT DETECTED (NOT DETECT); PARAINFLUENZA VIRUS 3 (PCR) NOT DETECTED (NOT DETECT); PARAINFLUENZA VIRUS 4 (PCR) NOT DETECTED (NOT DETECT); RESPIRATORY SYNCYTIAL V (PCR) NOT DETECTED (NOT DETECT); SARS_COV_2 (PCR) NOT DETECTED (NOT DETECT)
[2020-12-25 12:13] LABS: ADENOVIRUS (PCR) NOT DETECTED (NOT DETECT); HUMAN RHINOVIRUS/ENTEROV (PCR) DETECTED (NOT DETECT)
[2020-12-25] MEDS ORDERED: ZOFRAN ODT PO PRN (12:51)
[2020-12-25] MEDS ORDERED: XANAX PO PRN (12:51)
[2020-12-25 13:02] VITALS: BMI 26.9
[2020-12-25] MEDS ORDERED: ATROPINE SULFATE PFS IVP PRN (13:29)
[2020-12-25] MEDS ORDERED: NITROSTAT SL PRN (13:29)
[2020-12-25] MEDS ORDERED: TYLENOL PO PRN (13:29)
[2020-12-25 13:54] LABS: ALANINE AMINOTRANSFERASE 22.4 U/L (0-35); ALBUMIN 3.88 g/dL (3.5-5.0); ALKALINE PHOSPHATASE 75.6 U/L (53-141); ASPARTATE AMINO TRANSFERASE 50.5 U/L (14-36); BILIRUBIN,TOTAL 0.63 mg/dL (0.2-1.3); BLOOD UREA NITROGEN 26.9 mg/dL (7-17); CALCIUM 8.49 mg/dL (8.4-10.2); CARBON DIOXIDE 26.9 mmol/L (22-30.0); CHLORIDE 80.3 mmol/L (98-107); CREATINE KINASE 115.9 U/L (30-135); CREATININE 1.06 mg/dL (0.60-1.30); GLUCOSE 121.9 mg/dL (74-106); POTASSIUM 3.43 mmol/L (3.5-5.1); TOTAL PROTEIN 6.76 g/dL (6.3-8.2)
[2020-12-25 13:57] LABS: BASOPHILS % (AUTO) 0.1 % (0.0-3.0); EOSINOPHILS % (AUTO) 0.1 % (0.0-7.0); HEMATOCRIT 33.4 % (37.0-47.0); HEMOGLOBIN 11.4 g/dl (12.0-16.0); IMMATURE GRANULOCYTE # (AUTO) 0.1 (0.0-1.0); IMMATURE GRANULOCYTE % (AUTO) 0.7 % (0.0-5.0); LYMPHOCYTES # (AUTO) 1.3 K/uL (0.60-3.4); LYMPHOCYTES % (AUTO) 9.6 (10.0-50.0); MEAN CORPUSCULAR HEMOGLOBIN 30.2 pg (27.0-31.0); MEAN CORPUSCULAR HGB CONC 34.1 (31.8-35.4); MEAN CORPUSCULAR VOLUME 88.6 fl (81.0-99.0); MONOCYTES # (AUTO) 1.3 K/uL (0.4-2.0); MONOCYTES % (AUTO) 9.7 (0-10); NEUTROPHILS % (AUTO) 79.8 % (42.2-75.2); PLATELET COUNT 249 10^3/uL (140-440); RED BLOOD COUNT 3.77 10^6/ul (4.20-5.40); WHITE BLOOD COUNT 13.83 K/ul (4.6-10.2)
[2020-12-25] MEDS ORDERED: SODIUM CHLORIDE 1,000 ML IV SCH (14:00)
[2020-12-25 14:06] LABS: TROPONIN I 0.013 ng/ml (0.0000-0.120)
[2020-12-25 14:07] LABS: SODIUM 114.8 mmol/L (134.5-145)
[2020-12-25] MEDS: SODIUM CHLORIDE 1,000 ML IV SCH (14:23)
[2020-12-25] MEDS: ZITHROMAX PO SCH (14:23)
[2020-12-25] MEDS: DECADRON IM SCH (14:23)
[2020-12-25] MEDS: SYMBICORT 160-4.5 MCG INHALER IH SCH ×2 (14:23→20:15)
[2020-12-25] MEDS: ROCEPHIN 1 GM/50 ML D5W 1 GM/50 ML BAG IV SCH (14:26)
[2020-12-25 14:34] LABS: CREATINE KINASE MB 5.64 ng/ml (0.0-2.38)
--- NOTE | 2020-12-25 15:30 | CT ---
EXAM: CT head with and without contrast HISTORY: Altered mental status COMPARISON: 12/21/2020 TECHNIQUE: CT head performed with and without contrast FINDINGS: There is no mass effect, midline shift, or intracranial hemmorhage. Suresh white differenti ation is preserved. There is no extra-axial collection. The ventricles, sulci, and basal cisterns a re patent and symmetric. There is chronic ischemic disease of the white matter and cerebral volume l oss. There is no depressed calvarial fracture. The mastoid air cells are clear. The visualized para nasal sinuses are clear. There are intracranial atherosclerotic calcifications.No abnormal area of e nhancement. IMPRESSION: 1. No acute intracranial abnormality. No abnormal area of enhancement. 2. 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 All CT scans are performed using dose optimization techniques as appropriate to the performed exam an d include at least one of the following: Automated exposure control, adjustment of the mA and/or kV according t o size, and the use of iterative reconstruction technique.
--- NOTE | 2020-12-25 15:34 | CT ---
EXAM: CT Chest with and without contrast. HISTORY: Cough. COMPARISON: 12/22/2020. TECHNIQUE: Multiple axial images of the chest were obtained prior to and following intravenous admin istration of 100 mL Visipaque 320, low osmolar. Images were reformatted in the sagittal and coronal planes. FINDINGS: Bilateral thyroid nodules noted. The heart size normal. Atherosclerotic calcifications in the coronary arteries and aorta. No aortic dissection. There is no lymphadenopathy. No consolidation, pleural effusion or pneumothorax identified. No acute abnormality in the upper abdomen. Multiple bilateral renal cysts. Probable small hiatal he rnia. Old minimal superior endplate compression of T10. Degenerative changes in the spine. IMPRESSION: 1. No acute cardiopulmonary process. 2. Bilateral thyroid nodules. 3. Atherosclerosis. All CT scans are performed using dose optimization techniques as appropriate to the performed exam an d include at least one of the following: Automated exposure control, adjustment of the mA and/or kV according t o size, and the use of iterative reconstruction technique.
[2020-12-25] MEDS ORDERED: ZOFRAN 4 MG/2 ML IVP PRN (16:06)
[2020-12-25 16:46] LABS: BILIRUBIN,URINE Negative (NEGATIVE); CLARITY,URINE Clear (CLEAR); COLOR,URINE Yellow (YELLOW); GLUCOSE, URINE (UA) Negative (NEGATIVE); KETONES,URINE Negative (NEGATIVE); LEUKOCYTE ESTERASE ,URINE Negative (NEGATIVE); NITRITE,URINE Negative (NEGATIVE); PROTEIN,URINE 3+ (NEGATIVE); URINE, BLOOD Trace-lysed (NEGATIVE); UROBILINOGEN,URINE 0.2 (0.2)
[2020-12-25 16:48] LABS: SQUAMOUS EPITHELIAL CELL,UR NOT PRESENT (0-5)
[2020-12-25] MEDS: K-DUR PO SCH (17:01)
--- NOTE | 2020-12-25 17:21 | RS.OTINEVL ---
Subjective - Patient information Date of Evaluation: 12/25/20 Date of Arrival on Unit: 12/25/20 Admitted From:: Home Diagnosis: Acute bronchitis, dehydration, change in mental status PRECAUTIONS: Fall risk. Usual Living Arrangement: With Spouse Living Arrangement Comments: lives with . HAS 2 CAREGIVERS THAT STAY AT THE HOME 21/10 Home Environment: House, Stairs (few), Rail, Ramp Subjective Information/ Patient Comments:: Pt reports she would like to try the walker to steady her. - Level of function Abilities prior to this admission: Pt was independent with all ADLS and was taking care of her until about a week or so ago. Now patient is requiring help with ADLS and she needs help with bathing, dressing, standing, shakey. Current Level of Function: Partially Dependent Current Equipment Used at Home: RAISED TOILET SEAT, ROLLATOR Pain Assessment - Pain Pain Score: 0 Interventions - Objective Patient Orientation: Person, Situation Current Interventions: IV's, Telemetry Observation: Pt appears weak. Pt had just thrown up in the emesis bag. Pt sat EOB Min A. Pt stood Min A and was given a RW to help her steady her gait. Pt walked outside the room approximately 40 total feet with Min A. Pt wanted to go back to bed. Interventions - ROM Right Upper Extremity AROM: Slight limitation Left Upper Extremity AROM: Slight limitation - Strength Right Upper Extremity Strength: Mild Weakness Left Upper Extremity Strength: Mild Weakness - Sensation Right Upper Extremity Sensation: Intact/Normal Left Upper Extremity Sensation: Intact/Normal Balance - Sitting Balance Static Sitting Balance: Fair (Pt required a RW.) Dynamic Sitting Balance: Fair - Standing Balance Static Standing Balance: Poor Dynamic Standing Balance: Poor ADL Skills - Self Feeding Self Feeding: Independent - Grooming Grooming: Min Assist Grooming Set-up: Sitting - Bathing Bathing UE: Min Assist Bathing LE: Min Assist Bathing Set-up: Shower, Sitting - Dressing Dressing UE: Min Assist Dressing LE: Max Assist - Toilet Management Toilet Hygiene: Independent Toilet Clothing Management: Min Assist Functional Mobility - Bed Mobility Rolling R/L: Independent Scooting: Min Assist Supine to Sit: Min Assist Sit to Supine: Min Assist - Transfers Sit to Stand: Min Assist Stand to Sit: Min Assist Stand Pivot Transfers: Min Assist MIRYAM INDEX SCORE: . Additional Treatment Performed - Time with patient Length of Evaluation: 20 Total treatment time: 21 Activities Do you enjoy playing games?: Yes Would you be interested in leaving your room for activities?: Yes Would you enjoy group activities?: Yes Patient Interests:: Watching Television, Visiting/Socializing Patient Education Patient Education: Education of diagnosis, Education of Plan of Care Teaching Recipient: Patient Teaching Methods: Discussion, Demonstration Assessment Problem List:: Decreased level of function, Requires training/education, Decreased safety/Risk of falls, Weakness Rehab Potential: Good Further Therapy Indicated?: Yes Evaluation Complexity: HISTORY: Medium, EXAM OF BODY SYSTEMS: Medium, CLINICAL DECISION MAKING: Medium Patient's Goal(s): To get stronger and get to go home to help her . Short Term Goals - Goals GOAL 1: Pt to increase her dyn. std. to Fair+. Goal to be met by: 12/29/20 GOAL 2: Pt to increase her activity tolerance to 10 minutes with rests PRN. Goal to be met by: 12/29/20 GOAL 3: Pt to increase toilet transfers to CGA with RW. Goal to be met by: 12/29/20 GOAL 4: Pt to increase Garvin of UB/LB dressing to be I. Goal to be met by: 12/29/20 Intermediate Goals GOAL 1: Pt to increase activity tolerance to 15 minutes with rests. Goal to be met by: 01/05/21 GOAL 2: Pt to increase dyn. std. balance to Good- Goal to be met by: 01/05/21 GOAL 3: Pt to be Modified Independent with ADLS. Goal to be met by: 01/05/21 Plan Plan of Care: Therapeutic EX, Therapeutic Activity, Self-Care/Home Management Frequency of Treatment: 1-2 X day, as tolerated Duration of Treatment: 2 Weeks Anticipated Discharge Destination: Home Treatment Diagnosis (ICD 10 Codes): R53.1 weakness, Z74.1 Need for assistance with personal care. Has the Physician been added for Co-signature?: Yes
[2020-12-25] MEDS: NORVASC PO SCH (20:15)
[2020-12-25 21:47] LABS: CREATINE KINASE 125.8 U/L (30-135)
[2020-12-25 22:00] LABS: TROPONIN I < 0.012 ng/ml (0.0000-0.120)
[2020-12-25] MEDS: XANAX PO PRN (23:16)
[2020-12-26] MEDS: SODIUM CHLORIDE 1,000 ML IV SCH ×3 (01:04→12:08)
[2020-12-26 05:21] LABS: BASOPHILS % (AUTO) 0.1 % (0.0-3.0); HEMATOCRIT 31.4 % (37.0-47.0); HEMOGLOBIN 10.7 g/dl (12.0-16.0); IMMATURE GRANULOCYTE # (AUTO) 0.1 (0.0-1.0); IMMATURE GRANULOCYTE % (AUTO) 0.7 % (0.0-5.0); LYMPHOCYTES # (AUTO) 0.9 K/uL (0.60-3.4); MEAN CORPUSCULAR HEMOGLOBIN 30.8 pg (27.0-31.0); MEAN CORPUSCULAR HGB CONC 34.1 (31.8-35.4); MEAN CORPUSCULAR VOLUME 90.5 fl (81.0-99.0); MONOCYTES % (AUTO) 9.5 (0-10); NEUTROPHILS # (AUTO) 8.7 K/ul (2.0-6.9); NEUTROPHILS % (AUTO) 81.7 % (42.2-75.2); PLATELET COUNT 221 10^3/uL (140-440); RDW COEFFICIENT OF VARIATION 12.1 % (11.6-14.8); RED BLOOD COUNT 3.47 10^6/ul (4.20-5.40); WHITE BLOOD COUNT 10.67 K/ul (4.6-10.2)
[2020-12-26 05:33] LABS: ALANINE AMINOTRANSFERASE 21.9 U/L (0-35); ALBUMIN 3.37 g/dL (3.5-5.0); ALKALINE PHOSPHATASE 72.4 U/L (53-141); ASPARTATE AMINO TRANSFERASE 36.8 U/L (14-36); BILIRUBIN,TOTAL 0.52 mg/dL (0.2-1.3); CALCIUM 8.37 mg/dL (8.4-10.2); CARBON DIOXIDE 26.6 mmol/L (22-30.0); CHLORIDE 90.9 mmol/L (98-107); CREATININE 1.03 mg/dL (0.60-1.30); GLUCOSE 116.4 mg/dL (74-106); POTASSIUM 3.63 mmol/L (3.5-5.1); SODIUM 123.7 mmol/L (134.5-145); TOTAL PROTEIN 6.02 g/dL (6.3-8.2)
--- NOTE | 2020-12-26 08:25 | RS.PTINEVL ---
Subjective - Patient information Date of Evaluation: 12/25/20 Date of Arrival on Unit: 12/25/20 Admitted From:: Home Diagnosis: acute bronchitis, dehydration, altered mental status. Usual Living Arrangement: With Spouse Living Arrangement Comments: there are 2 caregivers in the home for her and her . Medical History: Hypertension, Arthritis, Cancer (bladder) Medical History Comments:: CKD, GERD, Surgical History Comments:: bladder surgery Medications: see chart Subjective Information/ Patient Comments:: pt states that she is feeling tired. pt states that she was independent at home (family report is pt has gotten weak over the past week and has been anxious regarding new caregiver) - Level of function Prior to this admission, the patient could do the following:: Partially Dependent Ambulation Abilities prior to this admission: prior to the past week pt was independent mostly. Current Level of Function: Partially Dependent Current Equipment Used at Home: RAISED TOILET SEAT Interventions - Objective Patient Orientation: Person, Place Current Interventions: IV's, Telemetry Range of Motion - ROM Right Upper Extremity AROM: WFL's Left Upper Extremity AROM: WFL's Right Lower Extremity AROM: WFL's Left Lower Extremity AROM: WFL's Muscle Strength - Muscle Strength Right Upper Extremity Strength: Mild Weakness (grossly 4/5) Left Upper Extremity Strength: Mild Weakness (grossly 4/5) Right Lower Extremity Strength: Mild Weakness (hip flex 4-/5, knee flex/ext 4/5, ankle DF/PF 4/5) Left Lower Extremity Strength: Mild Weakness (hip flex 4-/5, knee flex/ext 4/5, ankle DF/PF 4/5) Sensation - Sensation Right Upper Extremity Sensation: Intact/Normal Left Upper Extremity Sensation: Intact/Normal Right Lower Extremity Sensation: Intact/Normal Left Lower Extremity Sensation: Intact/Normal Palpation Palpation Findings: None/Normal Balance - Sitting Balance and Reactions Static Sitting Balance: Good Dynamic Sitting Balance: Fair - Standing Balance and Reactions Static Standing Balance: Poor Dynamic Standing Balance: Poor Standing Equilibrium Reactions: Delayed Left, Delayed Right Standing Protective Reactions: Delayed Left, Delayed Right Functional Mobility - Bed Mobility Rolling R/L: CGA Supine to Sit: Min Assist, Mod Assist Sit to Supine: Min Assist, Mod Assist - Transfers Sit to Stand: Min Assist Stand to Sit: Min Assist - Safety Awareness Safety Awareness: Fair MIRYAM INDEX SCORE: n/a Ambulation - Ambulation Assistive Device Used: Rolling Walker Orthotic/Prosthetic Device: No Distance: 50ft Assistance needed with Ambulation: Min Assist, 1 person assist, 2 person assist Quality of Ambulation: pt required min x 1 +1 for IV. pt required tactile cues for guiding rwx as well as verbal cues for posture and gait sequencing. Gait Deviations: Forward posture, Short stride, Deviates from path Factors Affecting Ambulation: Decreased Balance, Weakness, Decreased Safety, Cognitive Status, Limited Endurance Treatment time - Time with patient Length of Evaluation: 19 Total treatment time: 26 Patient Education - Education Patient Education: Activity Modification, Education of Plan of Care Teaching Recipient: Patient Teaching Methods: Discussion, Demonstration Comments: discussion regarding POC, demonstration on proper gait sequencing Assessment - Assessment Problem List:: Decreased level of function, Requires training/education, Decreased safety/Risk of falls, Weakness, Cognitive status limits abilities Rehab Potential: Fair Further Therapy Indicated?: Yes Candidate for Swing Bed for Therapy Services?: pt may be candidate for swing bed, would need to assess again after 3 night stay Evaluation Complexity: HISTORY: Medium, EXAM OF BODY SYSTEMS: Medium, CLINICAL PRESENTATION: Medium, CLINICAL DECISION MAKING: Medium Patient's Goal(s): get stronger and go home Short Term Goals GOAL #1: pt independent with rolling and scooting in bed. Goal to be met by: 12/27/20 GOAL #2: Transfer sup to/from sit CGA Goal to be met by: 12/27/20 GOAL #3: Transfer sit to/from stand CGA Goal to be met by: 12/27/20 GOAL #4: pt amb with rwx with CGA 100ft with improved posture and gait sequencing Goal to be met by: 12/27/20 GOAL #5: Improve dyn sitting balance good - Goal to be met by: 12/27/20 GOAL #6: Improve BLE strength 4 to 4+/5 Goal to be met by: 12/27/20 Ironer Sock Goals GOAL #1: pt transfer sup to/from sit to/from stand SBA to independent Goal to be met by: 12/30/20 GOAL #2: pt amb functional household distances with rwx SBA Goal to be met by: 12/30/20 GOAL #3: Improve dyn stand balance fair Goal to be met by: 12/30/20 Plan Plan of Care: Therapeutic EX, Therapeutic Activity Other:: gait training Frequency of Treatment: 1-2 X day, as tolerated Duration of Treatment: 5 days Anticipated Discharge Destination: Home Treatment Diagnosis (ICD 10 Codes): impaired balance R 26.81. difficulty walking R 26.2. weakness M62.81. fall risk Z91.81 Has the Physician been added for Co-signature?: Yes
[2020-12-26] MEDS: K-DUR PO SCH ×2 (09:24→16:53)
[2020-12-26] MEDS: TOPROL XL PO SCH (09:24)
[2020-12-26] MEDS: PRAVACHOL PO SCH (09:24)
[2020-12-26] MEDS: ZITHROMAX PO SCH (09:24)
[2020-12-26] MEDS: DECADRON IM SCH (09:24)
[2020-12-26] MEDS: ROCEPHIN 1 GM/50 ML D5W 1 GM/50 ML BAG IV SCH (09:25)
[2020-12-26] MEDS: SYMBICORT 160-4.5 MCG INHALER IH SCH ×2 (09:26→21:06)
--- NOTE | 2020-12-26 09:26 | PCM.PROG ---
Attending Provider: ATTENDING PROVIDER: Dr. JOSÉ ANTONIO GAVIRIA This patient is seen with Cassy Ortega, Nurse Practitioner. DATE OF SERVICE: 12/26/20 SUBJECTIVE: This 89 year old /WHITE F was hospitalized 12/25/20. The patient is resting comfortably in bed. She says she slept well. No vomiting through the night. Sodium improved. REVIEW OF SYSTEMS: CONSTITUTIONAL: Weakness. No night sweats. No fatigue, malaise, lethargy. No fever or chills. HEENT: Eyes: No visual changes. No eye pain. No eye discharge. ENT: No runny nose. No epistaxis. No sinus pain. No odynophagia. No congestion. RESPIRATORY: Cough. No hemoptysis. No shortness of breath. CARDIOVASCULAR: No angina symptoms. No CHF symptoms. No atypical chest pain for CAD. No palpitations. No orthopnea.. GASTROINTESTINAL: No abdominal pain. No nausea or vomiting. No diarrhea or constipation. No hematemesis. No hematochezia. GENITOURINARY: No urgency. No frequency. No dysuria. No hematuria. No obstructive symptoms. No discharge. No pain. No significant abnormal bleeding. MUSCULOSKELETAL: No musculoskeletal pain; no joint swelling. NEUROLOGICAL: Awake, improved alertness. No headache. No neck pain. No syncope. No seizures. No dizziness. PSYCHIATRIC: Not anxious. No depression. No suicidal thoughts. No homicidal thoughts. SKIN: No rash. No lesions. No wounds. ENDOCRINE: No unexplained weight loss. No weight gain. HEMATOLOGIC/LYMPHATIC: No anemia. No purpura. No petechiae. No prolonged or excessive bleeding. No palpable lymph nodes. PHYSICAL EXAMINATION: GENERAL: The patient is awake, alert and oriented, lying/sitting in bed in no distress. VITAL SIGNS: Temperature 98.8 F, Pulse 77, Respiratory Rate 18, BP 152/68, Pulse Ox 98% HEENT: Head normocephalic, atraumatic. Eyes: Extraocular muscles are intact. Pupils are equal, round and reactive to light and accommodation. Ears: No lesions. Nose appeared normal. Throat: No exudate or erythema. NECK: Supple. No JVD, no carotid bruit. No lymphadenopathy or thyromegaly. LUNGS: Diminished breath sounds with rales in the right lower lobe. Percussion note normal. Chest symmetrical. HEART: S1, S2, no S3. No murmurs. No cyanosis or clubbing. No ascites. Pulses: Dorsalis pedis and posterior tibial pulses +1 to +2 both sides. ABDOMEN: Soft. Non-tender. Bowel sounds active. No CVA tenderness. No mass felt. EXTREMITIES: No edema. Full range of motion of all extremities, equal. NEUROLOGIC: No focal deficit. Cranial nerves II through XII are grossly intact. No headache. No double vision. SKIN: Not dry. Intact. Turgor-normal. LYMPHATIC: No palpable lymph nodes/no lymphedema. MUSCULOSKELETAL: Normal joints with no swelling. Muscle tone is normal. LAB REVIEW: 12/26/20 04:51 12/26/20 04:51 12/26/20 04:51: Sodium 123.7 L, Potassium 3.63, Chloride 90.9 L, Carbon Dioxide 26.6, Anion Gap 9.83, BUN 21.0 H, Creatinine 1.03, Estimated GFR (MDRD) 50.00, BUN/Creatinine Ratio 20.38, Glucose 116.4 H, Calcium 8.37 L, Total Bilirubin 0.52, AST 36.8 H, ALT 21.9, Alkaline Phosphatase 72.4, Total Protein 6.02 L, Albumin 3.37 L, Globulin 2.65, Albumin/Globulin Ratio 1.27 12/26/20 04:51: WBC 10.67 H, RBC 3.47 L, Hgb 10.7 L, Hct 31.4 L, MCV 90.5, MCH 30.8, MCHC 34.1, RDW Coeff of Sheron 12.1, Plt Count 221, Immature Gran % (Auto) 0.7, Neut % (Auto) 81.7 H, Lymph % (Auto) 8.0 L, Marin % (Auto) 9.5, Eos % (Auto) 0.0, Baso % (Auto) 0.1, Neut # (Auto) 8.7 H, Lymph # (Auto) 0.9, Marin # (Auto) 1.0, Eos # (Auto) 0.0, Baso # (Auto) 0.0, Immature Gran # (Auto) 0.1 12/25/20 21:35: Total Creatine Kinase 125.8, CK-MB (CK-2) 6.390 H*, CK-MB (CK-2) % 5.0700, Troponin I < 0.012 12/25/20 16:39: Urine Color Yellow, Urine Clarity Clear, Urine pH 6.0, Ur Specific Bath 1.020, Urine Protein 3+ H, Urine Glucose (UA) Negative, Urine Ketones Negative, Urine Blood Trace-lysed, Urine Nitrite Negative, Urine Bilirubin Negative, Urine Urobilinogen 0.2, Ur Leukocyte Esterase Negative, Urine Microscopic RBC 2-5, Ur Squamous Epith Cells Not present 12/25/20 13:38: Sodium 114.8 L*, Potassium 3.43 L, Chloride 80.3 L, Carbon Dioxide 26.9, Anion Gap 11.03, BUN 26.9 H, Creatinine 1.06, Estimated GFR (MDRD) 49.00, BUN/Creatinine Ratio 25.37, Glucose 121.9 H, Calcium 8.49, Total Bilirubin 0.63, AST 50.5 H, ALT 22.4, Alkaline Phosphatase 75.6, Total Creatine Kinase 115.9, CK-MB (CK-2) 5.640 H*, CK-MB (CK-2) % 4.8600, Troponin I 0.013, Total Protein 6.76, Albumin 3.88, Globulin 2.88, Albumin/Globulin Ratio 1.34 12/25/20 13:38: WBC 13.83 H, RBC 3.77 L, Hgb 11.4 L, Hct 33.4 L, MCV 88.6 D, MCH 30.2, MCHC 34.1, RDW Coeff of Sheron 12.0, Plt Count 249, Immature Gran % (Auto) 0.7, Neut % (Auto) 79.8 H, Lymph % (Auto) 9.6 L, Marin % (Auto) 9.7, Eos % (Auto) 0.1, Baso % (Auto) 0.1, Neut # (Auto) 11.0 H, Lymph # (Auto) 1.3, Marin # (Auto) 1.3, Eos # (Auto) 0.0, Baso # (Auto) 0.0, Immature Gran # (Auto) 0.1 12/25/20 11:16: Adenovirus (PCR) Not detected, B. pertussis DNA (PCR) Not detected, B.parapertussis DNA PCR Not detected, C. pneumoniae DNA (PCR) Not det ected, Coronavirus OC43 (PCR) Not detected, Coronavirus HKU1 (PCR) Not detected, Coronavirus 229E (PCR) Not detected, Coronavirus NL63 (PCR) Not detected, Human Metapneumovir PCR Not detected, Influenza Type A (PCR) Not detected, Influenza B (RT-PCR) Not detected, M. pneumoniae (PCR) Not detected, Parainfluenza 1 (PCR) Not detected, Parainfluenza 2 (PCR) Not detected, Parainfluenza 3 (PCR) Not det ected, Parainfluenza 4 (PCR) Not detected, RSV (PCR) Not detected, Entero/Rhino (PCR) Detected H, SARS-CoV-2 (PCR) Not detected ASSESSMENT: Please see below. 1. Acute pneumonitis. 2. Hyponatremia. 3. Dehydration. 4. Change in mental status - resolved. PLAN: 1. Continue IV fluids. 2. Continue IV antibiotics. 3. Decrease IV fluids to 75 ml/hr. Plan and coordination of the patient's care discussed in the presence of Loft Worker Head and nurse. CONDITION: Stable SCRIBED BY: TRAVIS FITZPATRICK Manager Heavy Duty scribed while in presence of service performed by Dr. Gaviria/Cassy Ortega APRN on 12/26/20 ([id number])
--- NOTE | 2020-12-26 10:44 | HP ---
DATE OF SERVICE: 12/25/20 REASON FOR HOSPITALIZATION/HISTORY OF PRESENT ILLNESS: 89-year-old female who last week had cough and congestion. She went to the ER at [facility] with decreased responsiveness - drinking. Positive for enterovirus 12/23. Took Z-pack/prednisone/Phenergan with Codeine. Decreased alertness, coughing, weak, can't walk. PAST MEDICAL HISTORY: Hypertension Chronic anemia Chronic kidney disease 2/3 Insomnia B12 deficiency Thyroid GERD Hypertension PAST SURGICAL HISTORY: None REVIEW OF SYSTEMS: CONSTITUTIONAL: No fever. Positive for fatigue. HEENT: No sinus drainage, no sore throat. RESPIRATORY: Cough. No hemoptysis. CARDIOVASCULAR: No atypical chest pain for coronary artery disease. No angina, CHF symptoms, palpitations or shortness of breath. GASTROINTESTINAL: No melena or abdominal pain. No GERD. GENITOURINARY: No hematuria, no polyuria. MUSSEL FARMER: No blackout, no dizziness, no headache, no double vision. Unsteady gait. MUSCULOSKELETAL: Osteoarthritis pain. No joint swelling. ENDOCRINE: No weight loss, no weight gain. SKIN: Not dry, no rash. PSYCHIATRIC: Not anxious, no depression, no suicidal thoughts, no homicidal thoughts. SOCIAL HISTORY: Nonsmoker. . No alcohol use. Three children. FAMILY HISTORY: Father . Mother . Brother(s) x5; Sister(s) x4. MEDICATIONS: Pravachol 20 mg daily ASA 81 mg p.o. daily Xanax 0.5 mg daily Benadryl 25 mg 1/2 h.s. Amlodipine 5 mg q.h.s. Metoprolol Succ 25 mg q.d a.m. Stool Softener 100 mg p.r.n. Magnesium 400 mg q.d Caltrate 600+D3 b.i.d. Vitamin C 500 mg q.d Zofran 4 mg p.r.n. Covid Vaccine #1 07/13/20 Moderna; vaccine #2 08/18 ALLERGIES: PHENERGAN WITH CODEINE PHYSICAL EXAMINATION: V/S: Pulse 82, BP 112/68, temperature 97.5, 02 sat 96%. Unable to weigh. GENERAL APPEARANCE: Oriented to person only. Dry mucous membranes. HEENT: Normal. NECK: No JVP, no bruits. RESPIRATORY: Decreased breath sounds. Rales right lower lobe. CARDIOVASCULAR: S1, S2, no S3, no murmur. No cyanosis, clubbing. No ascites. GI/ABDOMEN: No tenderness. Bowel sounds are active. EXTREMITIES: No edema, pulses +1, equal. MUSSEL FARMER: Deep tendon reflexes, sensory, motor and gait all normal. RECTAL/PELVIC: The patient refused pelvic. Refused colonoscopy. ASSESSMENT: 1. Acute bronchitis 2. Dehydration 3. Change in mental status 4. GERD 5. Hypertension 6. History of hematuria with bladder tumor 7. 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 Status post immunotherapy, Dr. Hughes 9. Chronic anemia 10. Chronic kidney disease, Stage 2/3 11. Insomnia 12. B12 deficiency 13. Anxiety 14. Thyroid nodules, refuses ultrasound 15. Both Covid vaccines. PLAN: 1. Routine telemetry orders. 2. CBC, CMP now and daily. 3. CT chest with and without contrast. 4. NS IV @ 75 cc/hr 5. Rocephin 1 gm IV daily 6. U/A with culture 7. CT brain with and without 8. Zithromax 500 daily, p.o. times 3 days 9. 1 cc Decadron IM daily 10. CPR only/DNI 11. Sputum culture 12. Symbicort 160/4.5 two puffs b.i.d. 13. D/C Xanax 14. Start Xanax 0.25 mg p.o. b.i.d. p.r.n. 15. Regular diet TIME SPENT: More than 70 minutes. MTDD
[2020-12-26] MEDS: NORVASC PO SCH (21:05)
[2020-12-26] MEDS: XANAX PO PRN (21:06)
[2020-12-27 05:18] LABS: BASOPHILS % (AUTO) 0.1 % (0.0-3.0); EOSINOPHILS % (AUTO) 0.1 % (0.0-7.0); HEMATOCRIT 31.1 % (37.0-47.0); HEMOGLOBIN 10.3 g/dl (12.0-16.0); IMMATURE GRANULOCYTE # (AUTO) 0.1 (0.0-1.0); IMMATURE GRANULOCYTE % (AUTO) 0.9 % (0.0-5.0); LYMPHOCYTES # (AUTO) 1.5 K/uL (0.60-3.4); LYMPHOCYTES % (AUTO) 10.4 (10.0-50.0); MEAN CORPUSCULAR HEMOGLOBIN 30.7 pg (27.0-31.0); MEAN CORPUSCULAR HGB CONC 33.1 (31.8-35.4); MEAN CORPUSCULAR VOLUME 92.6 fl (81.0-99.0); MONOCYTES # (AUTO) 1.4 K/uL (0.4-2.0); MONOCYTES % (AUTO) 9.9 (0-10); NEUTROPHILS # (AUTO) 11.2 K/ul (2.0-6.9); NEUTROPHILS % (AUTO) 78.6 % (42.2-75.2); PLATELET COUNT 219 10^3/uL (140-440); RDW COEFFICIENT OF VARIATION 12.4 % (11.6-14.8); RED BLOOD COUNT 3.36 10^6/ul (4.20-5.40); WHITE BLOOD COUNT 14.19 K/ul (4.6-10.2)
[2020-12-27 05:31] LABS: ALANINE AMINOTRANSFERASE 22.3 U/L (0-35); ALBUMIN 3.51 g/dL (3.5-5.0); ALKALINE PHOSPHATASE 68.2 U/L (53-141); ASPARTATE AMINO TRANSFERASE 31.3 U/L (14-36); BILIRUBIN,TOTAL 0.47 mg/dL (0.2-1.3); CALCIUM 8.5 mg/dL (8.4-10.2); CARBON DIOXIDE 24.4 mmol/L (22-30.0); CHLORIDE 96.1 mmol/L (98-107); CREATININE 0.92 mg/dL (0.60-1.30); GLUCOSE 100.4 mg/dL (74-106); POTASSIUM 4.02 mmol/L (3.5-5.1); SODIUM 127.9 mmol/L (134.5-145); TOTAL PROTEIN 6.21 g/dL (6.3-8.2)
--- NOTE | 2020-12-27 08:00 | PN ---
DATE OF SERVICE: 12/25/20 SUBJECTIVE: The patient was seen and examined in the office and the patient has been hospitalized. Her condition has deteriorated. She was in the emergency room where she was hospitalized and the family declined and was taken home. TIME SPENT: More than 30 minutes. Plan and coordination of the patient's care discussed in the presence of nurse. NANCY
[2020-12-27] MEDS: ZITHROMAX PO SCH (09:46)
[2020-12-27] MEDS: K-DUR PO SCH ×2 (09:46→17:34)
[2020-12-27] MEDS: TOPROL XL PO SCH (09:46)
[2020-12-27] MEDS: PRAVACHOL PO SCH (09:46)
[2020-12-27] MEDS: SYMBICORT 160-4.5 MCG INHALER IH SCH ×2 (09:47→20:59)
[2020-12-27] MEDS: DECADRON IM SCH (09:47)
[2020-12-27] MEDS: ROCEPHIN 1 GM/50 ML D5W 1 GM/50 ML BAG IV SCH (09:48)
[2020-12-27] MEDS: SODIUM CHLORIDE 1,000 ML IV SCH ×2 (11:31→16:05)
[2020-12-27] MEDS: NORVASC PO SCH (20:58)
[2020-12-27] MEDS ORDERED: VASOTEC IV IVP PRN (23:46)
[2020-12-27] MEDS ORDERED: NORVASC PO ONE (23:47)
[2020-12-28] MEDS: XANAX PO PRN (00:23)
[2020-12-28] MEDS: SODIUM CHLORIDE 1,000 ML IV SCH ×2 (02:25→04:52)
[2020-12-28 05:33] LABS: BASOPHILS % (AUTO) 0.1 % (0.0-3.0); EOSINOPHILS % (AUTO) 0.2 % (0.0-7.0); HEMATOCRIT 29.1 % (37.0-47.0); HEMOGLOBIN 9.7 g/dl (12.0-16.0); IMMATURE GRANULOCYTE # (AUTO) 0.2 (0.0-1.0); LYMPHOCYTES % (AUTO) 10.7 (10.0-50.0); MEAN CORPUSCULAR HEMOGLOBIN 30.7 pg (27.0-31.0); MEAN CORPUSCULAR HGB CONC 33.3 (31.8-35.4); MEAN CORPUSCULAR VOLUME 92.1 fl (81.0-99.0); MONOCYTES # (AUTO) 1.7 K/uL (0.4-2.0); MONOCYTES % (AUTO) 8.9 (0-10); NEUTROPHILS # (AUTO) 14.7 K/ul (2.0-6.9); NEUTROPHILS % (AUTO) 79.1 % (42.2-75.2); PLATELET COUNT 199 10^3/uL (140-440); RDW COEFFICIENT OF VARIATION 12.6 % (11.6-14.8); RED BLOOD COUNT 3.16 10^6/ul (4.20-5.40); WHITE BLOOD COUNT 18.54 K/ul (4.6-10.2)
[2020-12-28 05:50] LABS: ALANINE AMINOTRANSFERASE 22.2 U/L (0-35); ALBUMIN 3.12 g/dL (3.5-5.0); ALKALINE PHOSPHATASE 64.1 U/L (53-141); ASPARTATE AMINO TRANSFERASE 28.5 U/L (14-36); BILIRUBIN,TOTAL 0.27 mg/dL (0.2-1.3); CALCIUM 8.52 mg/dL (8.4-10.2); CARBON DIOXIDE 24.8 mmol/L (22-30.0); CHLORIDE 97.7 mmol/L (98-107); CREATININE 0.86 mg/dL (0.60-1.30); GLUCOSE 104.2 mg/dL (74-106); POTASSIUM 4.32 mmol/L (3.5-5.1); SODIUM 128.2 mmol/L (134.5-145); TOTAL PROTEIN 5.61 g/dL (6.3-8.2)
[2020-12-28] MEDS: ROCEPHIN 1 GM/50 ML D5W 1 GM/50 ML BAG IV SCH (09:10)
[2020-12-28] MEDS: SYMBICORT 160-4.5 MCG INHALER IH SCH ×2 (09:11→20:00)
[2020-12-28] MEDS: TOPROL XL PO SCH (09:14)
[2020-12-28] MEDS: K-DUR PO SCH ×2 (09:14→17:03)
[2020-12-28] MEDS: PRAVACHOL PO SCH (09:14)
[2020-12-28] MEDS: DECADRON IM SCH (09:15)
--- NOTE | 2020-12-28 09:47 | PN ---
DATE OF SERVICE: 12/26/2020 SUBJECTIVE: The patient was seen and examined with the Nurse Practitioner. The patient's condition is stable. She is recovering from dehydration, bronchitis. She is demented and alert. TIME SPENT: More than 30 minutes. Plan and coordination of the patient's care discussed in the presence of nurse. NANCY
--- NOTE | 2020-12-28 10:49 | PN ---
DATE OF SERVICE: 12/27/2020 SUBJECTIVE: 89 year old female hospitalized with acute bronchitis and dehydration. The patient's condition has improved. Mental status seems to be a little bit better. She recognized me. REVIEW OF SYSTEMS: CONSTITUTIONAL: No night sweats. No fatigue, malaise, lethargy. No fever or chills. Feeling better. HEENT: Eyes: No visual changes. No eye pain. No eye discharge. ENT: No runny nose. No epistaxis. No sinus pain. No sore throat. No odynophagia. No congestion. RESPIRATORY: No cough, no congestion. No hemoptysis. No shortness of breath. CARDIOVASCULAR: No angina symptoms. No CHF symptoms. No atypical chest pain for CAD. No palpitations. No PND. No orthopnea. GASTROINTESTINAL: No abdominal pain. No nausea or vomiting. No diarrhea or constipation. No hematemesis. No hematochezia. GENITOURINARY: No urgency. No frequency. No dysuria. No hematuria. No obstructive symptoms. No discharge. No pain. No significant abnormal bleeding. MUSCULOSKELETAL: No musculoskeletal pain; no joint swelling. NEUROLOGICAL: No headache. No neck pain. No syncope. No seizures. No dizziness. PSYCHIATRIC: Not anxious. No depression. No suicidal thoughts. No homicidal thoughts. SKIN: No rash. No lesions. No wounds. ENDOCRINE: No unexplained weight loss. No weight gain. HEMATOLOGIC/LYMPHATIC: No anemia. No purpura. No petechiae. No prolonged or excessive bleeding. No palpable lymph nodes. PHYSICAL EXAMINATION: VITAL SIGNS: Temperature 98.5, pulse 75, respiratory rate 18, blood pressure 150/80 and pulse ox 96%. HEENT: Head normocephalic, atraumatic. Eyes: Extraocular muscles are intact. Pupils are equal, round and reactive to light and accommodation. Ears: No lesions. Nose appeared normal. Throat: No exudate or erythema. NECK: Supple. No JVD, no carotid bruit. No lymphadenopathy or thyromegaly. LUNGS: Clear to auscultation. Percussion note normal. Chest symmetrical. HEART: S1, S2, no S3. No murmurs. No cyanosis or clubbing. No ascites. Pulses: Dorsalis pedis and posterior tibial pulses +1 to +2 bilaterally. ABDOMEN: Soft. Nontender. Bowel sounds active. No CVA tenderness. No mass felt. EXTREMITIES: No edema. Full range of motion of all extremities, equal. NEUROLOGIC: No focal deficit. Cranial nerves II through XII are grossly intact. No headache. No double vision. SKIN: Not dry. Intact. Turgor - normal. Looks somewhat pale. LYMPHATIC: No palpable lymph nodes/no lymphedema. MUSCULOSKELETAL: Normal joints with no swelling. Muscle tone is normal. LABS: Hgb 10.3, hct 31, WBC 14,000 normal differential, creatinine 0.9, BUN 23, potassium 4. SARS Negative ASSESSMENT: 1. Acute bronchitis seems to be resolving 2. Dehydration is resolving 3. Change in the mental status with improvement in the mental status to some extent PLAN: 1. Continue steroids, antibiotics 2. Encourage the patient to eat. TIME SPENT: More than 30 minutes. Plan and coordination of the patient's care discussed in the presence of nurse. NANCY
[2020-12-28] MEDS: NORVASC PO SCH (20:00)
[2020-12-29 05:56] LABS: BASOPHILS % (AUTO) 0.1 % (0.0-3.0); EOSINOPHILS % (AUTO) 0.1 % (0.0-7.0); HEMATOCRIT 30.8 % (37.0-47.0); IMMATURE GRANULOCYTE # (AUTO) 0.1 (0.0-1.0); IMMATURE GRANULOCYTE % (AUTO) 0.7 % (0.0-5.0); LYMPHOCYTES # (AUTO) 1.8 K/uL (0.60-3.4); LYMPHOCYTES % (AUTO) 12.2 (10.0-50.0); MEAN CORPUSCULAR HEMOGLOBIN 29.9 pg (27.0-31.0); MEAN CORPUSCULAR HGB CONC 32.5 (31.8-35.4); MEAN CORPUSCULAR VOLUME 92.2 fl (81.0-99.0); MONOCYTES # (AUTO) 1.2 K/uL (0.4-2.0); MONOCYTES % (AUTO) 8.1 (0-10); NEUTROPHILS # (AUTO) 11.9 K/ul (2.0-6.9); NEUTROPHILS % (AUTO) 78.8 % (42.2-75.2); PLATELET COUNT 203 10^3/uL (140-440); RDW COEFFICIENT OF VARIATION 12.6 % (11.6-14.8); RED BLOOD COUNT 3.34 10^6/ul (4.20-5.40); WHITE BLOOD COUNT 15.13 K/ul (4.6-10.2)
[2020-12-29 06:07] LABS: ALBUMIN 3.41 g/dL (3.5-5.0); ALKALINE PHOSPHATASE 60.7 U/L (53-141); ASPARTATE AMINO TRANSFERASE 27.7 U/L (14-36); BILIRUBIN,TOTAL 0.38 mg/dL (0.2-1.3); BLOOD UREA NITROGEN 29.1 mg/dL (7-17); CALCIUM 8.78 mg/dL (8.4-10.2); CHLORIDE 94.7 mmol/L (98-107); CREATININE 0.9 mg/dL (0.60-1.30); GLUCOSE 107.2 mg/dL (74-106); POTASSIUM 4.68 mmol/L (3.5-5.1); SODIUM 127.6 mmol/L (134.5-145); TOTAL PROTEIN 6.01 g/dL (6.3-8.2)
[2020-12-29] MEDS ORDERED: PREDNISONE PO SCH (08:30)
[2020-12-29] MEDS: PRAVACHOL PO SCH (08:55)
[2020-12-29] MEDS: K-DUR PO SCH ×2 (08:55→16:44)
[2020-12-29] MEDS: TOPROL XL PO SCH (08:56)
[2020-12-29] MEDS: SYMBICORT 160-4.5 MCG INHALER IH SCH ×2 (08:56→21:31)
[2020-12-29] MEDS ORDERED: LEVAQUIN 500 MG/100 ML D5W 500 MG/100 ML BAG IV ONE (10:30)
--- NOTE | 2020-12-29 10:50 | DI ---
EXAM: CHEST FRONTAL AND LATERAL VIEWS HISTORY: Acute bronchitis COMPARISON: 12/21/2020 FINDINGS: Heart size remains within normal limits. Atherosclerotic disease is again noted. There i s diffuse, chronic appearing interstitial accentuation. No acute infiltrates are seen. No vascular congestion. There is no consolidation, visible pleural fluid or pneumothorax. Bones reveal no acute fracture. IMPRESSION: No acute cardiopulmonary process.
--- NOTE | 2020-12-29 11:07 | PCM.PROG ---
Attending Provider: ATTENDING PROVIDER: Dr. JOSÉ ANTONIO GAVIRIA This patient is seen with Cassy Ortega, Nurse Practitioner. DATE OF SERVICE: 12/29/20 SUBJECTIVE: This 89 year old /WHITE F was hospitalized 12/25/20. The patient is sitting in chair resting comfortably. She has been eating and drinking well. No nausea. Cough improved. Temperature noted at 99 last night and again this morning, now is 99.9. Otherwise no change in symptoms. REVIEW OF SYSTEMS: CONSTITUTIONAL: Weakness. Fever. No night sweats. No fatigue, malaise, lethargy. No chills. HEENT: Eyes: No visual changes. No eye pain. No eye discharge. ENT: No runny nose. No epistaxis. No sinus pain. No odynophagia. No congestion. RESPIRATORY: Cough. No hemoptysis. No shortness of breath. CARDIOVASCULAR: No angina symptoms. No CHF symptoms. No atypical chest pain for CAD. No palpitations. No orthopnea.. GASTROINTESTINAL: No abdominal pain. No nausea or vomiting. No diarrhea or constipation. No hematemesis. No hematochezia. GENITOURINARY: No urgency. No frequency. No dysuria. No hematuria. No obstructi ve symptoms. No discharge. No pain. No significant abnormal bleeding. MUSCULOSKELETAL: No musculoskeletal pain; no joint swelling. NEUROLOGICAL: Awake, alert, oriented to time, place and person. No headache. No neck pain. No syncope. No seizures. No dizziness. PSYCHIATRIC: Not anxious. No depression. No suicidal thoughts. No homicidal thoughts. SKIN: No rash. No lesions. No wounds. ENDOCRINE: No unexplained weight loss. No weight gain. HEMATOLOGIC/LYMPHATIC: No anemia. No purpura. No petechiae. No prolonged or excessive bleeding. No palpable lymph nodes. PHYSICAL EXAMINATION: GENERAL: The patient is awake, alert and oriented, lying/sitting in bed in no distress. VITAL SIGNS: Temperature 98.8 F, Pulse 80, Respiratory Rate 20, BP 177/81, Pulse Ox 98% HEENT: Head normocephalic, atraumatic. Eyes: Extraocular muscles are intact. Pupils are equal, round and reactive to light and accommodation. Ears: No lesions. Nose appeared normal. Throat: No exudate or erythema. NECK: Supple. No JVD, no carotid bruit. No lymphadenopathy or thyromegaly. LUNGS: Diminished breath sounds. Clear to auscultation. Percussion note normal. Chest symmetrical. HEART: S1, S2, no S3. No murmurs. No cyanosis or clubbing. No ascites. Pulses: Dorsalis pedis and posterior tibial pulses +1 to +2 both sides. ABDOMEN: Soft. Non-tender. Bowel sounds active. No CVA tenderness. No mass felt. EXTREMITIES: No edema. Full range of motion of all extremities, equal. NEUROLOGIC: No focal deficit. Cranial nerves II through XII are grossly intact. No headache. No double vision. SKIN: Not dry. Intact. Turgor-normal. LYMPHATIC: No palpable lymph nodes/no lymphedema. MUSCULOSKELETAL: Normal joints with no swelling. Muscle tone is normal. LAB REVIEW: 12/29/20 05:48 12/29/20 05:48 12/29/20 05:48: Sodium 127.6 L, Potassium 4.68, Chloride 94.7 L, Carbon Dioxide 28.0, Anion Gap 9.58, BUN 29.1 H, Creatinine 0.90, Estimated GFR (MDRD) 59.00, BUN/Creatinine Ratio 32.33, Glucose 107.2 H, Calcium 8.78, Total Bilirubin 0.38, AST 27.7, ALT 23.0, Alkaline Phosphatase 60.7, Total Protein 6.01 L, Albumin 3.41 L, Globulin 2.60, Albumin/Globulin Ratio 1.31 12/29/20 05:48: WBC 15.13 H, RBC 3.34 L, Hgb 10.0 L, Hct 30.8 L, MCV 92.2, MCH 2 9.9, MCHC 32.5, RDW Coeff of Sheron 12.6, Plt Count 203, Immature Gran % (Auto) 0.7, Neut % (Auto) 78.8 H, Lymph % (Auto) 12.2, Garrard % (Auto) 8.1, Eos % (Auto) 0.1, Baso % (Auto) 0.1, Neut # (Auto) 11.9 H, Lymph # (Auto) 1.8, [place]ard # (Auto) 1.2, Eos # (Auto) 0.0, Baso # (Auto) 0.0, Immature Gran # (Auto) 0.1 ASSESSMENT: Please see below. 1. Fever 2. Acute bronchitis 3. Hyponatremia improved 4. Generalized weakness 5. Hypertension PLAN: 1. Repeat chest x-ray. 2. Respiratory panel by PCR. 3. Prednisone 10 mg daily times 5 days. 4. UA. 5. Blood culture times two. 6. Levaquin 500 mg IV daily. Plan and coordination of the patient's care discussed in the presence of Time Checker and nurse. CONDITION: Stable SCRIBED BY: TRAVIS FITZPATRICK Pododermatologist scribed while in presence of service performed by Dr. Gaviria/Cassy Ortega APRN on 12/29/20 ([id number])
[2020-12-29 11:14] LABS: BORDETELLA PARAPERTUSSIS (PCR) NOT DETECTED (NOT DETECT); BORDETELLA PERTUSSIS (PCR) NOT DETECTED (NOT DETECT); CHLAMYDIA PNEUMONIAE (PCR) NOT DETECTED (NOT DETECT); CORONAVIRUS 229E (PCR) NOT DETECTED (NOT DETECT); CORONAVIRUS HKU1 (PCR) NOT DETECTED (NOT DETECT); CORONAVIRUS NL63 (PCR) NOT DETECTED (NOT DETECT); CORONAVIRUS OC43 (PCR) NOT DETECTED (NOT DETECT); HUMAN METAPNEUMOVIRUS (PCR) NOT DETECTED (NOT DETECT); INFLUENZA B (PCR) NOT DETECTED (NOT DETECT); MYCOPLASMA PNEUMONIAE (PCR) NOT DETECTED (NOT DETECT); PARAINFLUENZA VIRUS 1 (PCR) NOT DETECTED (NOT DETECT); PARAINFLUENZA VIRUS 2 (PCR) NOT DETECTED (NOT DETECT); PARAINFLUENZA VIRUS 3 (PCR) NOT DETECTED (NOT DETECT); PARAINFLUENZA VIRUS 4 (PCR) NOT DETECTED (NOT DETECT); RESPIRATORY SYNCYTIAL V (PCR) NOT DETECTED (NOT DETECT); SARS_COV_2 (PCR) NOT DETECTED (NOT DETECT)
--- NOTE | 2020-12-29 11:21 | PCM.PROG ---
Attending Provider: ATTENDING PROVIDER: Dr. JOSÉ ANTONIO GAVIRIA This patient is seen with Cassy Ortega, Nurse Practitioner. DATE OF SERVICE: 12/28/20 SUBJECTIVE: This 89 year old /WHITE F was hospitalized 12/25/20. The patient is resting comfortably. She is getting stronger eating well. REVIEW OF SYSTEMS: CONSTITUTIONAL: Weakness. No night sweats. No fatigue, malaise, lethargy. No fever or chills. HEENT: Eyes: No visual changes. No eye pain. No eye discharge. ENT: No runny nose. No epistaxis. No sinus pain. No odynophagia. No congestion. RESPIRATORY: Cough, No hemoptysis. No shortness of breath. CARDIOVASCULAR: No angina symptoms. No CHF symptoms. No atypical chest pain for CAD. No palpitations. No orthopnea.. GASTROINTESTINAL: No abdominal pain. No nausea or vomiting. No diarrhea or constipation. No hematemesis. No hematochezia. GENITOURINARY: No urgency. No frequency. No dysuria. No hematuria. No obstructive symptoms. No discharge. No pain. No significant abnormal bleeding. MUSCULOSKELETAL: No musculoskeletal pain; no joint swelling. NEUROLOGICAL: Awake, alert, oriented to time, place and person. No headache. No neck pain. No syncope. No seizures. No dizziness. PSYCHIATRIC: Not anxious. No depression. No suicidal thoughts. No homicidal thoughts. SKIN: No rash. No lesions. No wounds. ENDOCRINE: No unexplained weight loss. No weight gain. HEMATOLOGIC/LYMPHATIC: No anemia. No purpura. No petechiae. No prolonged or excessive bleeding. No palpable lymph nodes. PHYSICAL EXAMINATION: GENERAL: The patient is awake, alert and oriented, lying/sitting in bed in no distress. VITAL SIGNS: Temperature 98.7 F, Pulse 82, Respiratory Rate 18, BP 146/82, Pulse Ox 96% HEENT: Head normocephalic, atraumatic. Eyes: Extraocular muscles are intact. Pupils are equal, round and reactive to light and accommodation. Ears: No lesions. Nose appeared normal. Throat: No exudate or erythema. NECK: Supple. No JVD, no carotid bruit. No lymphadenopathy or thyromegaly. LUNGS: Diminished breath sounds. Clear to auscultation. Percussion note normal. Chest symmetrical. HEART: S1, S2, no S3. No murmurs. No cyanosis or clubbing. No ascites. Pulses: Dorsalis pedis and posterior tibial pulses +1 to +2 both sides. ABDOMEN: Soft. Non-tender. Bowel sounds active. No CVA tenderness. No mass felt. EXTREMITIES: No edema. Full range of motion of all extremities, equal. NEUROLOGIC: No focal deficit. Cranial nerves II through XII are grossly intact. No headache. No double vision. SKIN: Not dry. Intact. Turgor-normal. LYMPHATIC: No palpable lymph nodes/no lymphedema. MUSCULOSKELETAL: Normal joints with no swelling. Muscle tone is normal. LAB REVIEW: 12/28/20 05:12 12/28/20 05:12 12/28/20 05:12: Sodium 128.2 L, Potassium 4.32, Chloride 97.7 L, Carbon Dioxide 24.8, Anion Gap 10.02, BUN 23.0 H, Creatinine 0.86, Estimated GFR (MDRD) 62.00, BUN/Creatinine Ratio 26.74, Glucose 104.2, Calcium 8.52, Total Bilirubin 0.27, AST 28.5, ALT 22.2, Alkaline Phosphatase 64.1, Total Protein 5.61 L, Albumin 3.12 L, Globulin 2.49, Albumin/Globulin Ratio 1.25 12/28/20 05:12: WBC 18.54 H, RBC 3.16 L, Hgb 9.7 L, Hct 29.1 L, MCV 92.1, MCH 30.7, MCHC 33.3, RDW Coeff of Sheron 12.6, Plt Count 199, Immature Gran % (Auto) 1. 0, Neut % (Auto) 79.1 H, Lymph % (Auto) 10.7, [place]ascade % (Auto) 8.9, Eos % (Auto) 0.2, Baso % (Auto) 0.1, Neut # (Auto) 14.7 H, Lymph # (Auto) 2.0, [place] # (Auto) 1.7, Eos # (Auto) 0.0, Baso # (Auto) 0.0, Immature Gran # (Auto) 0.2 ASSESSMENT: Please see below. 1. Acute bronchitis. 2. Dehydration - resolved. 3. Back to baseline mental status. 4. Hyponatremia. PLAN: 1. D/C IV fluids. 2. Decrease potassium to 20 mEq daily. 3. Prednisone 20 mg daily. 4. D/C Decadron. 5. Let Cassy know how blood pressure does today. Plan and coordination of the patient's care discussed in the presence of Corner Cutter Machine Operator and nurse. CONDITION: Stable SCRIBED BY: TRAVIS FITZPATRICK Cascade Operator scribed while in presence of service performed by Dr. Gaviria/Cassy Ortega APRN on 12/28/20 ([id number])
--- NOTE | 2020-12-29 11:50 | PN ---
DATE OF SERVICE: 12/28/2020 SUBJECTIVE: The patient was seen and examined with Nurse Practitioner. The patient's condition is improving. Appetite is improving. Respiratory status is stable. TIME SPENT: More than 30 minutes. Plan and coordination of the patient's care discussed in the presence of nurse. NANCY
[2020-12-29 12:01] LABS: ADENOVIRUS (PCR) NOT DETECTED (NOT DETECT); HUMAN RHINOVIRUS/ENTEROV (PCR) DETECTED (NOT DETECT)
[2020-12-29 13:02] LABS: BILIRUBIN,URINE Negative (NEGATIVE); CLARITY,URINE Clear (CLEAR); COLOR,URINE Yellow (YELLOW); GLUCOSE, URINE (UA) Negative (NEGATIVE); KETONES,URINE Negative (NEGATIVE); LEUKOCYTE ESTERASE ,URINE Negative (NEGATIVE); NITRITE,URINE Negative (NEGATIVE); PH,URINE 6.5 (5-9); PROTEIN,URINE 2+ (NEGATIVE); URINE, BLOOD Negative (NEGATIVE); UROBILINOGEN,URINE 0.2 (0.2)
[2020-12-29 13:19] LABS: MUCUS,URINE 1+ (NOT PRESENT)
[2020-12-29] MEDS: XANAX PO PRN (21:21)
[2020-12-29] MEDS: NORVASC PO SCH (21:21)
[2020-12-30 04:07] LABS: BASOPHILS % (AUTO) 0.1 % (0.0-3.0); EOSINOPHILS # (AUTO) 0.1 K/ul (0.0-0.7); EOSINOPHILS % (AUTO) 0.4 % (0.0-7.0); HEMATOCRIT 32.6 % (37.0-47.0); HEMOGLOBIN 10.7 g/dl (12.0-16.0); IMMATURE GRANULOCYTE # (AUTO) 0.1 (0.0-1.0); IMMATURE GRANULOCYTE % (AUTO) 0.9 % (0.0-5.0); LYMPHOCYTES # (AUTO) 2.3 K/uL (0.60-3.4); LYMPHOCYTES % (AUTO) 14.2 (10.0-50.0); MEAN CORPUSCULAR HEMOGLOBIN 30.7 pg (27.0-31.0); MEAN CORPUSCULAR HGB CONC 32.8 (31.8-35.4); MEAN CORPUSCULAR VOLUME 93.4 fl (81.0-99.0); MONOCYTES # (AUTO) 1.3 K/uL (0.4-2.0); MONOCYTES % (AUTO) 7.8 (0-10); NEUTROPHILS # (AUTO) 12.5 K/ul (2.0-6.9); NEUTROPHILS % (AUTO) 76.6 % (42.2-75.2); PLATELET COUNT 212 10^3/uL (140-440); RDW COEFFICIENT OF VARIATION 12.6 % (11.6-14.8); RED BLOOD COUNT 3.49 10^6/ul (4.20-5.40)
[2020-12-30 06:25] LABS: ALANINE AMINOTRANSFERASE 22.1 U/L (0-35); ALBUMIN 3.39 g/dL (3.5-5.0); ALKALINE PHOSPHATASE 60.1 U/L (53-141); ASPARTATE AMINO TRANSFERASE 26.6 U/L (14-36); BILIRUBIN,TOTAL 0.32 mg/dL (0.2-1.3); BLOOD UREA NITROGEN 39.9 mg/dL (7-17); CALCIUM 9.03 mg/dL (8.4-10.2); CARBON DIOXIDE 27.6 mmol/L (22-30.0); CHLORIDE 92.7 mmol/L (98-107); CREATININE 1.12 mg/dL (0.60-1.30); GLUCOSE 117.1 mg/dL (74-106); POTASSIUM 5.07 mmol/L (3.5-5.1); SODIUM 127.1 mmol/L (134.5-145); TOTAL PROTEIN 6.15 g/dL (6.3-8.2)
[2020-12-30] MEDS ORDERED: PREDNISONE PO SCH ×2 (08:30)
[2020-12-30] MEDS: K-DUR PO SCH ×2 (09:09→17:56)
[2020-12-30] MEDS: PREDNISONE PO SCH (09:09)
[2020-12-30] MEDS: PRAVACHOL PO SCH (09:09)
[2020-12-30] MEDS: TOPROL XL PO SCH (09:09)
[2020-12-30] MEDS: SYMBICORT 160-4.5 MCG INHALER IH SCH ×2 (09:11→21:27)
[2020-12-30] MEDS: LEVAQUIN 250 MG/50 ML D5W 250 MG/50 ML BAG IV SCH (09:26)
[2020-12-30] MEDS: NORVASC PO SCH (21:27)
[2020-12-30] MEDS: XANAX PO PRN (21:27)
[2020-12-31 06:19] LABS: BASOPHILS % (AUTO) 0.2 % (0.0-3.0); EOSINOPHILS # (AUTO) 0.2 K/ul (0.0-0.7); EOSINOPHILS % (AUTO) 1.2 % (0.0-7.0); HEMATOCRIT 30.4 % (37.0-47.0); HEMOGLOBIN 10.1 g/dl (12.0-16.0); IMMATURE GRANULOCYTE # (AUTO) 0.3 (0.0-1.0); IMMATURE GRANULOCYTE % (AUTO) 1.5 % (0.0-5.0); LYMPHOCYTES # (AUTO) 2.6 K/uL (0.60-3.4); LYMPHOCYTES % (AUTO) 15.4 (10.0-50.0); MEAN CORPUSCULAR HEMOGLOBIN 30.5 pg (27.0-31.0); MEAN CORPUSCULAR HGB CONC 33.2 (31.8-35.4); MEAN CORPUSCULAR VOLUME 91.8 fl (81.0-99.0); MONOCYTES # (AUTO) 1.7 K/uL (0.4-2.0); MONOCYTES % (AUTO) 10.2 (0-10); NEUTROPHILS # (AUTO) 11.9 K/ul (2.0-6.9); NEUTROPHILS % (AUTO) 71.5 % (42.2-75.2); PLATELET COUNT 206 10^3/uL (140-440); RDW COEFFICIENT OF VARIATION 12.4 % (11.6-14.8); RED BLOOD COUNT 3.31 10^6/ul (4.20-5.40); WHITE BLOOD COUNT 16.57 K/ul (4.6-10.2)
[2020-12-31 06:37] LABS: ALANINE AMINOTRANSFERASE 22.8 U/L (0-35); ALBUMIN 3.15 g/dL (3.5-5.0); ALKALINE PHOSPHATASE 53.7 U/L (53-141); ASPARTATE AMINO TRANSFERASE 26.6 U/L (14-36); BILIRUBIN,TOTAL 0.37 mg/dL (0.2-1.3); BLOOD UREA NITROGEN 38.5 mg/dL (7-17); CALCIUM 8.55 mg/dL (8.4-10.2); CARBON DIOXIDE 25.2 mmol/L (22-30.0); CHLORIDE 92.3 mmol/L (98-107); CREATININE 1.09 mg/dL (0.60-1.30); POTASSIUM 4.73 mmol/L (3.5-5.1); SODIUM 122.7 mmol/L (134.5-145); TOTAL PROTEIN 5.61 g/dL (6.3-8.2)
[2020-12-31] MEDS: K-DUR PO SCH ×2 (08:31→18:07)
[2020-12-31] MEDS: TOPROL XL PO SCH (08:31)
[2020-12-31] MEDS: PREDNISONE PO SCH (08:31)
[2020-12-31] MEDS: PRAVACHOL PO SCH (08:31)
[2020-12-31] MEDS: LEVAQUIN 250 MG/50 ML D5W 250 MG/50 ML BAG IV SCH (08:32)
[2020-12-31] MEDS: SYMBICORT 160-4.5 MCG INHALER IH SCH ×2 (08:41→20:12)
[2020-12-31] MEDS: SODIUM CHLORIDE 1,000 ML IV SCH (08:56)
[2020-12-31] MEDS: NORVASC PO SCH (20:11)
[2021-01-01 04:24] LABS: BASOPHILS % (AUTO) 0.2 % (0.0-3.0); EOSINOPHILS # (AUTO) 0.2 K/ul (0.0-0.7); EOSINOPHILS % (AUTO) 1.4 % (0.0-7.0); HEMATOCRIT 28.4 % (37.0-47.0); HEMOGLOBIN 9.2 g/dl (12.0-16.0); IMMATURE GRANULOCYTE # (AUTO) 0.2 (0.0-1.0); IMMATURE GRANULOCYTE % (AUTO) 1.3 % (0.0-5.0); LYMPHOCYTES # (AUTO) 2.2 K/uL (0.60-3.4); LYMPHOCYTES % (AUTO) 17.5 (10.0-50.0); MEAN CORPUSCULAR HEMOGLOBIN 30.2 pg (27.0-31.0); MEAN CORPUSCULAR HGB CONC 32.4 (31.8-35.4); MEAN CORPUSCULAR VOLUME 93.1 fl (81.0-99.0); MONOCYTES # (AUTO) 1.2 K/uL (0.4-2.0); MONOCYTES % (AUTO) 9.7 (0-10); NEUTROPHILS # (AUTO) 8.8 K/ul (2.0-6.9); NEUTROPHILS % (AUTO) 69.9 % (42.2-75.2); PLATELET COUNT 175 10^3/uL (140-440); RDW COEFFICIENT OF VARIATION 12.9 % (11.6-14.8); RED BLOOD COUNT 3.05 10^6/ul (4.20-5.40); WHITE BLOOD COUNT 12.62 K/ul (4.6-10.2)
[2021-01-01 04:36] LABS: ALANINE AMINOTRANSFERASE 18.6 U/L (0-35); ALBUMIN 2.95 g/dL (3.5-5.0); ALKALINE PHOSPHATASE 46.5 U/L (53-141); ASPARTATE AMINO TRANSFERASE 27.5 U/L (14-36); BILIRUBIN,TOTAL 0.33 mg/dL (0.2-1.3); BLOOD UREA NITROGEN 42.5 mg/dL (7-17); CALCIUM 8.41 mg/dL (8.4-10.2); CARBON DIOXIDE 27.5 mmol/L (22-30.0); CHLORIDE 95.6 mmol/L (98-107); CREATININE 1.37 mg/dL (0.60-1.30); GLUCOSE 107.5 mg/dL (74-106); POTASSIUM 4.98 mmol/L (3.5-5.1); SODIUM 127.2 mmol/L (134.5-145); TOTAL PROTEIN 5.29 g/dL (6.3-8.2)
[2021-01-01] MEDS: PREDNISONE PO SCH (09:29)
[2021-01-01] MEDS: TOPROL XL PO SCH (09:29)
[2021-01-01] MEDS: K-DUR PO SCH ×2 (09:29→16:03)
[2021-01-01] MEDS: PRAVACHOL PO SCH (09:29)
[2021-01-01] MEDS: SYMBICORT 160-4.5 MCG INHALER IH SCH ×2 (09:30→21:18)
[2021-01-01] MEDS: LEVAQUIN 250 MG/50 ML D5W 250 MG/50 ML BAG IV SCH (09:35)
--- NOTE | 2021-01-01 09:48 | PCM.PROG ---
Attending Provider: ATTENDING PROVIDER: Dr. JOSÉ ANTONIO GAVIRIA DATE OF SERVICE: 01/01/21 SUBJECTIVE: This 89 year old /WHITE F was hospitalized 12/25/20 with bronchitis and dehydration. The patient had change in mental status. The patient's condition has improved. She had a febrile episode couple of days ago. Started on Levaquin. Blood and urine cultures were negative. Mental status is imrpoved. She r ecognizes me and knows here she is. REVIEW OF SYSTEMS: CONSTITUTIONAL: No night sweats. No fatigue, malaise, lethargy. No fever or chills. HEENT: Eyes: No visual changes. No eye pain. No eye discharge. ENT: No runny nose. No epistaxis. No sinus pain. No odynophagia. No congestion. RESPIRATORY: No cough, no congestion. No hemoptysis. No shortness of breath. CARDIOVASCULAR: No angina symptoms. No CHF symptoms. No atypical chest pain for CAD. No palpitations. No orthopnea.. GASTROINTESTINAL: No abdominal pain. No nausea or vomiting. No diarrhea or constipation. No hematemesis. No hematochezia. GENITOURINARY: No urgency. No frequency. No dysuria. No hematuria. No obst ructive symptoms. No discharge. No pain. No significant abnormal bleeding. MUSCULOSKELETAL: No musculoskeletal pain; no joint swelling. NEUROLOGICAL: Awake, alert, oriented to time, place and person. No headache. No neck pain. No syncope. No seizures. No dizziness. PSYCHIATRIC: Not anxious. No depression. No suicidal thoughts. No homicidal thoughts. SKIN: No rash. No lesions. No wounds. ENDOCRINE: No unexplained weight loss. No weight gain. HEMATOLOGIC/LYMPHATIC: No anemia. No purpura. No petechiae. No prolonged or excessive bleeding. No palpable lymph nodes. PHYSICAL EXAMINATION: GENERAL: The patient is awake, alert and oriented, sitting in bed in no distress. VITAL SIGNS: Temperature 98.0 F, Pulse 82, Respiratory Rate 16, BP 131/75, Pulse Ox 100% HEENT: Head normocephalic, atraumatic. Eyes: Extraocular muscles are intact. Pupils are equal, round and reactive to light and accommodation. Ears: No lesions. Nose appeared normal. Throat: No exudate or erythema. NECK: Supple. No JVD, no carotid bruit. No lymphadenopathy or thyromegaly. LUNGS: Clear to auscultation. Percussion note normal. Chest symmetrical. HEART: S1, S2, no S3. No murmurs. No cyanosis or clubbing. No ascites. Pulses: Dorsalis pedis and posterior tibial pulses +1 to +2 both sides. ABDOMEN: Soft. Non-tender. Bowel sounds active. No CVA tenderness. No mass felt. EXTREMITIES: No edema. Full range of motion of all extremities, equal. NEUROLOGIC: No focal deficit. Cranial nerves II through XII are grossly intact. No headache, no double vision or headache. SKIN: Warm and dry. Intact. Turgor-normal. LYMPHATIC: No palpable lymph nodes/no lymphedema. MUSCULOSKELETAL: Normal joints with no swelling. Muscle tone is normal. LAB REVIEW: 01/01/21 04:18 01/01/21 04:18 01/01/21 04:18: Sodium 127.2 L, Potassium 4.98, Chloride 95.6 L, Carbon Dioxide 27.5, Anion Gap 9.08, BUN 42.5 H, Creatinine 1.37 H, Estimated GFR (MDRD) 36.00, BUN/Creatinine Ratio 31.02, Glucose 107.5 H, Calcium 8.41, Total Bilirubin 0.33, AST 27.5, ALT 18.6, Alkaline Phosphatase 46.5 L, Total Protein 5.29 L, Albumin 2.95 L, Globulin 2.34, Albumin/Globulin Ratio 1.26 01/01/21 04:18: WBC 12.62 H, RBC 3.05 L, Hgb 9.2 L, Hct 28.4 L, MCV 93.1, MCH 30.2, MCHC 32.4, RDW Coeff of Sheron 12.9, Plt Count 175, Immature Gran % (Auto) 1.3, Neut % (Auto) 69.9, Lymph % (Auto) 17.5, [place] % (Auto) 9.7, Eos % (Auto) 1 .4, Baso % (Auto) 0.2, Neut # (Auto) 8.8 H, Lymph # (Auto) 2.2, [place] # (Auto) 1.2, Eos # (Auto) 0.2, Baso # (Auto) 0.0, Immature Gran # (Auto) 0.2 ASSESSMENT: Please see below. 1. Bronchitis resolved 2. Dehydration, resolved 3. Mental status is improved. 4. The patient is forgetful PLAN: 1. Continue Levaquin from tomorrow 250mg PO daily 2. Continue the rest of the medication as before Plan and coordination of the patient's care discussed in the presence of Crisis Therapist and nurse. SCRIBED BY: MARYAN EARLY Supervisor Heavy Equipment scribed while in presence of service performed by Dr. JOSÉ ANTONIO GAVIRIA on 01/01/21 ([id number])
--- NOTE | 2021-01-01 10:42 | PN ---
DATE OF SERVICE: 12/29/2020 SUBJECTIVE: The patient was seen and examined with the Nurse Practitioner. The patient was running fever. The patient will have U/A and blood cultures. She is going to be on Levaquin. Otherwise the patient's condition is stable. Bronchitis seems to be resolving. TIME SPENT: More than 30 minutes. Plan and coordination of the patient's care discussed in the presence of nurse. NANCY
[2021-01-01] MEDS: XANAX PO PRN (21:16)
[2021-01-01] MEDS: NORVASC PO SCH (21:16)
[2021-01-02 04:59] LABS: BASOPHILS % (AUTO) 0.1 % (0.0-3.0); EOSINOPHILS # (AUTO) 0.2 K/ul (0.0-0.7); EOSINOPHILS % (AUTO) 1.1 % (0.0-7.0); HEMATOCRIT 27.8 % (37.0-47.0); HEMOGLOBIN 8.9 g/dl (12.0-16.0); IMMATURE GRANULOCYTE # (AUTO) 0.1 (0.0-1.0); LYMPHOCYTES # (AUTO) 1.8 K/uL (0.60-3.4); LYMPHOCYTES % (AUTO) 13.2 (10.0-50.0); MEAN CORPUSCULAR HEMOGLOBIN 30.1 pg (27.0-31.0); MEAN CORPUSCULAR VOLUME 93.9 fl (81.0-99.0); MONOCYTES # (AUTO) 1.1 K/uL (0.4-2.0); MONOCYTES % (AUTO) 7.8 (0-10); NEUTROPHILS # (AUTO) 10.7 K/ul (2.0-6.9); NEUTROPHILS % (AUTO) 76.8 % (42.2-75.2); PLATELET COUNT 184 10^3/uL (140-440); RDW COEFFICIENT OF VARIATION 12.9 % (11.6-14.8); RED BLOOD COUNT 2.96 10^6/ul (4.20-5.40); WHITE BLOOD COUNT 13.91 K/ul (4.6-10.2)
[2021-01-02 05:20] LABS: ALANINE AMINOTRANSFERASE 17.8 U/L (0-35); ALKALINE PHOSPHATASE 45.5 U/L (53-141); ASPARTATE AMINO TRANSFERASE 31.3 U/L (14-36); BILIRUBIN,TOTAL 0.39 mg/dL (0.2-1.3); BLOOD UREA NITROGEN 43.5 mg/dL (7-17); CALCIUM 8.32 mg/dL (8.4-10.2); CARBON DIOXIDE 25.6 mmol/L (22-30.0); CHLORIDE 97.5 mmol/L (98-107); CREATININE 1.15 mg/dL (0.60-1.30); GLUCOSE 107.7 mg/dL (74-106); POTASSIUM 4.97 mmol/L (3.5-5.1); SODIUM 127.9 mmol/L (134.5-145); TOTAL PROTEIN 5.42 g/dL (6.3-8.2)
[2021-01-02 05:48] VITALS: BP 131/72; TEMP 98.5
[2021-01-02] MEDS ORDERED: LEVAQUIN PO SCH (06:30)
[2021-01-02] MEDS: PRAVACHOL PO SCH (09:17)
[2021-01-02] MEDS: K-DUR PO SCH (09:18)
[2021-01-02] MEDS: PREDNISONE PO SCH (09:18)
[2021-01-02] MEDS: SYMBICORT 160-4.5 MCG INHALER IH SCH (09:18)
[2021-01-02] MEDS: TOPROL XL PO SCH (09:18)
--- NOTE | 2021-01-02 09:44 | PCM.PROG ---
Attending Provider: ATTENDING PROVIDER: Dr. JOSÉ ANTONIO GAVIRIA DATE OF SERVICE: 01/02/21 SUBJECTIVE: This 89 year old /WHITE F was hospitalized 12/25/20 with bronchitis and dehydration. She has some febrile illness some 3-7 days ago. Blood cultures and urine cultures were negative. She is sitting up in the chair and is oriented to place and person. REVIEW OF SYSTEMS: CONSTITUTIONAL: No night sweats. No fatigue, malaise, lethargy. No fever or chills. HEENT: Eyes: No visual changes. No eye pain. No eye discharge. ENT: No runny nose. No epistaxis. No sinus pain. No odynophagia. No congestion. RESPIRATORY: No cough, no congestion. No hemoptysis. No shortness of breath. CARDIOVASCULAR: No angina symptoms. No CHF symptoms. No atypical chest pain for CAD. No palpitations. No orthopnea.. GASTROINTESTINAL: No abdominal pain. No nausea or vomiting. No diarrhea or constipation. No hematemesis. No hematochezia. GENITOURINARY: No urgency. No frequency. No dysuria. No hematuria. No obstructive symptoms. No discharge. No pain. No significant abnormal bleeding. MUSCULOSKELETAL: No musculoskeletal pain; no joint swelling. NEUROLOGICAL: Awake, alert, oriented to time, place and person. No headache. No neck pain. No syncope. No seizures. No dizziness. PSYCHIATRIC: Not anxious. No depression. No suicidal thoughts. No homicidal thoughts. SKIN: No rash. No lesions. No wounds. ENDOCRINE: No unexplained weight loss. No weight gain. HEMATOLOGIC/LYMPHATIC: No anemia. No purpura. No petechiae. No prolonged or excessive bleeding. No palpable lymph nodes. PHYSICAL EXAMINATION: GENERAL: The patient is awake, alert and oriented, sitting in chair in no distress. VITAL SIGNS: Temperature 98.5 F, Pulse 80, Respiratory Rate 18, BP 131/72, Pulse Ox 100% HEENT: Head normocephalic, atraumatic. Eyes: Extraocular muscles are intact. Pupils are equal, round and reactive to light and accommodation. Ears: No lesions. Nose appeared normal. Throat: No exudate or erythema. NECK: Supple. No JVD, no carotid bruit. No lymphadenopathy or thyromegaly. LUNGS: Clear to auscultation. Percussion note normal. Chest symmetrical. HEART: S1, S2, no S3. No murmurs. No cyanosis or clubbing. No ascites. Pulses: Dorsalis pedis and posterior tibial pulses +1 to +2 both sides. ABDOMEN: Soft. Non-tender. Bowel sounds active. No CVA tenderness. No mass felt. EXTREMITIES: No edema. Full range of motion of all extremities, equal. NEUROLOGIC: No focal deficit. Cranial nerves II through XII are grossly intact. No headache, no double vision or headache. SKIN: Warm and dry. Intact. Turgor-normal. LYMPHATIC: No palpable lymph nodes/no lymphedema. MUSCULOSKELETAL: Normal joints with no swelling. Muscle tone is normal. LAB REVIEW: 01/02/21 04:50 01/02/21 04:50 01/02/21 04:50: Sodium 127.9 L, Potassium 4.97, Chloride 97.5 L, Carbon Dioxide 25.6, Anion Gap 9.77, BUN 43.5 H, Creatinine 1.15, Estimated GFR (MDRD) 44.00, BUN/Creatinine Ratio 37.82, Glucose 107.7 H, Calcium 8.32 L, Total Bilirubin 0.39, AST 31.3, ALT 17.8, Alkaline Phosphatase 45.5 L, Total Protein 5.42 L, Albumin 3.00 L, Globulin 2.42, Albumin/Globulin Ratio 1.23 01/02/21 04:50: WBC 13.91 H, RBC 2.96 L, Hgb 8.9 L, Hct 27.8 L, MCV 93.9, MCH 30.1, MCHC 32.0, RDW Coeff of Sheron 12.9, Plt Count 184, Immature Gran % (Auto) 1.0, Neut % (Auto) 76.8 H, Lymph % (Auto) 13.2, [place] % (Auto) 7.8, Eos % (Auto) 1.1, Baso % (Auto) 0.1, Neut # (Auto) 10.7 H, Lymph # (Auto) 1.8, [place] # (Auto) 1.1, Eos # (Auto) 0.2, Baso # (Auto) 0.0, Immature Gran # (Auto) 0.1 ASSESSMENT: Please see below. 1. Bronchitis, resolved 2. Dehydration, resolved 3. Mental status seems to have improved 4. 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 PLAN: 1. Discharge to [facility]. The patient knows that and she wants to talk to daughter. d Plan and coordination of the patient's care discussed in the presence of Rig Mechanic and nurse. CONDITION: Stable SCRIBED BY: MARYAN EARLY Radio Performer scribed while in presence of service performed by Dr. JOSÉ ANTONIO GAVIRIA on 01/02/21 ([id number])
--- NOTE | 2021-01-02 09:49 | DS ---
DATE OF SERVICE: 01/02/2021 FINAL DIAGNOSIS: ACUTE BRONCHITIS, RESOLVED HYPONATREMIA, IMPROVED DEHYDRATION, RESOLVED HYPERTENSION CHRONIC KIDNEY DISEASE 2/3 INSOMNIA B 12 DEFICIENCY THYROID WITH NODULES, REFUSES ULTRASOUNDS GERD BLADDER CARCINOMA WITH RESECTION 03/19 ANXIETY DEMENTIA, AGE RELATED LAST VITALS: Temp Pulse Resp BP Pulse Ox 98.5 F 80 18 131/72 99 01/02/21 05:48 01/02/21 05:48 01/02/21 05:48 01/02/21 05:48 01/02/21 10:00 DISCHARGE INSTRUCTIONS: DISCHARGE TO [facility]. PHYSICAL THERAPY EVALUATION/OCCUPATIONAL THERAPY EVALUATION. VITAL SIGNS DAILY AND PRN. WEIGH MONTHLY. CBC, CMP, TSH AND FREE T4 IN 2 WEEKS AND THEN CBC, CMP, TSH, FREE T4 AND LIPID PANEL EVERY 6 MONTHS. AN APPOINTMENT IS SCHEDULED WITH DR. GAVIRIA/JIGNESH ARREDONDO APRN/ROBERT SNELL APRN ON JANUARY 08 AT 11:15 AM (FAMILY WILL TAKE). CODE STATUS: DO NOT INTUBATE, CPR ONLY TAKE THESE MEDICATIONS AT HOME: Alprazolam (Alprazolam 0.25 Mg Tablet) 0.25 mg PO BID PRN PRN Reason: Anxiety Last Admin: 01/01/21 21:16 Dose: 0.25 mg Documented by: Amlodipine Besylate (Amlodipine Besylate 5 Mg Tablet) 5 mg PO BEDTIME [facility] Last Admin: 01/01/21 21:16 Dose: 5 mg Documented by: Levofloxacin (Levofloxacin 500 Mg Tablet) 250 mg PO QDAC [facility] ( NEW RX X 5 DAYS) Stop: 01/05/21 06:29 Last Admin: 01/02/21 07:22 Dose: 250 mg Documented by: Metoprolol Succinate (Metoprolol Succinate 25 Mg Tab.Er.24h) 25 mg PO DAILY [facility] Last Admin: 01/02/21 09:18 Dose: 25 mg Documented by: Pravastatin Sodium (Pravastatin Sodium 20 Mg Tablet) 20 mg PO DAILY [facility] Last Admin: 01/02/21 09:17 Dose: 20 mg Documented by: Prednisone (Prednisone 10 Mg Tablet) 10 mg PO DAILYWM [facility] (NEW RX X 5 DAYS) Last Admin: 01/02/21 09:18 Dose: 10 mg Documented by: ALLERGIES: codeine Adverse Reaction (Verified 12/25/20 12:47) DISCONTINUED MEDICATIONS: ZOFRAN 4 MG PO Q 6 HOURS PRN NEW PRESCRIPTIONS: LEVAQUIN 250 MG DAILY FOR 5 DAYS PREDNISONE 10 MG DAILY WITH MEAL FOR 5 DAYS ALPRAZOLAM 0.25 MG BID NEEDED FOR ANXIETY ( LIMIT TO 14 DAYS) SMOKING: NOT APPLICABLE DISEASE SPECIFIC EDUCATION: NUTRITION ACTIVITY PATIENT IS FORGETFUL LAB REVIEW: 01/02/21 04:50 01/02/21 04:50 01/02/21 04:50: Sodium 127.9 L, Potassium 4.97, Chloride 97.5 L, Carbon Dioxide 25.6, Anion Gap 9.77, BUN 43.5 H, Creatinine 1.15, Estimated GFR (MDRD) 44.00, BUN/Creatinine Ratio 37.82, Glucose 107.7 H, Calcium 8.32 L, Total Bilirubin 0.39, AST 31.3, ALT 17.8, Alkaline Phosphatase 45.5 L, Total Protein 5.42 L, Albumin 3.00 L, Globulin 2.42, Albumin/Globulin Ratio 1.23 01/02/21 04:50: WBC 13.91 H, RBC 2.96 L, Hgb 8.9 L, Hct 27.8 L, MCV 93.9, MCH 30.1, MCHC 32.0, RDW Coeff of Sheron 12.9, Plt Count 184, Immature Gran % (Auto) 1.0, Neut % (Auto) 76.8 H, Lymph % (Auto) 13.2, [place] % (Auto) 7.8, Eos % (Auto) 1.1, Baso % (Auto) 0.1, Neut # (Auto) 10.7 H, Lymph # (Auto) 1.8, [place] # (Auto) 1.1, Eos # (Auto) 0.2, Baso # (Auto) 0.0, Immature Gran # (Auto) 0.1 DIET: REGULAR TOLERATED ACTIVITY: UP TO CHAIR FOR MEALS AND WITH THERAPY HOSPITAL COURSE: 89 year old white female hospitalized with acute bronchitis and dehydration. The patient was treated as an outpatient and had been to the ER a couple of times before hospitalization here. She was treated with Levaquin, steroids and IV fluids and her condition improved. After 4 days the patient spiked a fever. Cultures that were done at that time were negative. The patient's condition has improved remarkably. She seems to be oriented to place and person and she has indicated that she is going to the long term. Cardiovascular and respiratory status is stable. Oxygen saturation is 100% on room air. COVID is negative. She is going to be discharged on Levaquin and Prednisone. She will be seen in 7 days as an outpatient. The patient is CPR only, no intubation. She will be given Xanax 0.25mg BID PRN. TIME SPENT: More than 60 minutes. MTDD
--- NOTE | 2021-01-02 09:50 | PN ---
12/25/20: Level 5 12/26/20: Intermediate 12/27/20: Intermediate 12/28/20: Intermediate 12/29/20: Intermediate 12/30/20: Intermediate 12/31/20: Intermediate 01/01/21: Intermediate 01/02/21: D as in discharge MTDD
--- NOTE | 2021-01-02 11:23 | CM.DICTOOL ---
ADMISSION: 12/25/20 12:24 DISCHARGE: JANUARY 02, 2021 DATE OF SERVICE: 01/02/21 FINAL DIAGNOSIS ACUTE BRONCHITIS, RESOLVED HYPONATREMIA, IMPROVED DEHYDRATION, RESOLVED HYPERTENSION CHRONIC KIDNEY DISEASE 2/3 INSOMNIA B 12 DEFICIENCY THYROID WITH NODULES, REFUSES ULTRASOUNDS GERD BLADDER CARCINOMA WITH RESECTION 03/19 ANXIETY DEMENTIA, AGE RELATED LAST VITALS Temp Pulse Resp BP Pulse Ox 98.5 F 80 18 131/72 99 01/02/21 05:48 01/02/21 05:48 01/02/21 05:48 01/02/21 05:48 01/02/21 10:00 TAKE THESE MEDICATIONS AT HOME Alprazolam (Alprazolam 0.25 Mg Tablet) 0.25 mg PO BID PRN PRN Reason: Anxiety Last Admin: 01/01/21 21:16 Dose: 0.25 mg Documented by: Amlodipine Besylate (Amlodipine Besylate 5 Mg Tablet) 5 mg PO BEDTIME [facility] Last Admin: 01/01/21 21:16 Dose: 5 mg Documented by: Levofloxacin (Levofloxacin 500 Mg Tablet) 250 mg PO QDAC [facility] ( NEW RX X 5 DAYS) Stop: 01/05/21 06:29 Last Admin: 01/02/21 07:22 Dose: 250 mg Documented by: Metoprolol Succinate (Metoprolol Succinate 25 Mg Tab.Er.24h) 25 mg PO DAILY [facility] Last Admin: 01/02/21 09:18 Dose: 25 mg Documented by: Pravastatin Sodium (Pravastatin Sodium 20 Mg Tablet) 20 mg PO DAILY [facility] Last Admin: 01/02/21 09:17 Dose: 20 mg Documented by: Prednisone (Prednisone 10 Mg Tablet) 10 mg PO DAILYWM [facility] (NEW RX X 5 DAYS) Last Admin: 01/02/21 09:18 Dose: 10 mg Documented by: ALLERGIES codeine Adverse Reaction (Verified 12/25/20 12:47) DISCONTINUED MEDICATIONS ZOFRAN 4 MG PO Q 6 HOURS PRN NEW PRESCRIPTIONS: LEVAQUIN 250 MG DAILY FOR 5 DAYS PREDNISONE 10 MG DAILY WITH MEAL FOR 5 DAYS ALPRAZOLAM 0.25 MG BID NEEDED FOR ANXIETY ( LIMIT TO 14 DAYS) SMOKING: NOT APPLICABLE DISEASE SPECIFIC EDUCATION: NUTRITION ACTIVITY PATIENT IS FORGETFUL LAB REVIEW: 01/02/21 04:50 01/02/21 04:50 01/02/21 04:50: Sodium 127.9 L, Potassium 4.97, Chloride 97.5 L, Carbon Dioxide 25.6, Anion Gap 9.77, BUN 43.5 H, Creatinine 1.15, Estimated GFR (MDRD) 44.00, BUN/Creatinine Ratio 37.82, Glucose 107.7 H, Calcium 8.32 L, Total Bilirubin 0.39, AST 31.3, ALT 17.8, Alkaline Phosphatase 45.5 L, Total Protein 5.42 L, Albumin 3.00 L, Globulin 2.42, Albumin/Globulin Ratio 1.23 01/02/21 04:50: WBC 13.91 H, RBC 2.96 L, Hgb 8.9 L, Hct 27.8 L, MCV 93.9, MCH 30.1, MCHC 32.0, RDW Coeff of Sheron 12.9, Plt Count 184, Immature Gran % (Auto) 1.0, Neut % (Auto) 76.8 H, Lymph % (Auto) 13.2, [place] % (Auto) 7.8, Eos % (Auto) 1.1, Baso % (Auto) 0.1, Neut # (Auto) 10.7 H, Lymph # (Auto) 1.8, [place] # (Auto) 1.1, Eos # (Auto) 0.2, Baso # (Auto) 0.0, Immature Gran # (Auto) 0.1 PLAN: DISCHARGE TO [facility] DIET: REGULAR TOLERATED ACTIVITY: UP TO CHAIR FOR MEALS AND WITH THERAPY PHYSICAL THERAPY EVALUATION OCCUPATIONAL THERAPY EVALUATION VITAL SIGNS DAILY AND PRN WEIGH MONTHLY CBC, CMP, TSH AND FREE T4 IN 2 WEEKS AND THEN CBC, CMP, TSH, FREE T4 AND LIPID PANEL EVERY 6 MONTHS AN APPOINTMENT IS SCHEDULED WITH DR. GAVIRIA/JIGNESH ARREDONDO APRN/ROBERT SNELL APRN ON JANUARY 08 AT 11:15 AM (FAMILY WILL TAKE) CODE STATUS: DO NOT INTUBATE, CPR ONLY MRS. HURST IS ALERT TO PERSON, PLACE. SHE IS FORGETFUL, BUT IS COOPERATIVE WITH CARE. SHE WILL REPEAT SELF AND ASK SAME QUESTIONS FREQUENTLY. MRS. HURST IS INDEPENDENT WITH FEEDING. MEAL INTAKES ARE GOOD AT 50-100%. LIQUID INTAKES ARE GOOD. SHE IS CONTINENT OF BOWEL AND BLADDER. SHE IS TRANSFERS WITH [facility]GA OF 1 STAFF MEMBER TO THE CHAIR. MRS. HURST IS ALSO AMBULATORY WITH USE OF A ROLLING WALKER AND CGA X 1. GAIT IS STEADY. MRS. HURST IS AWARE OF PLANS TO DISCHARGE TO [facility] FOR THERAPY. SHE IS AGREEABLE TO THIS PLAN. HER WAS RECENTLY ADMITTED TO THE SAME FACILITY AND SHE IS HOPING TO VISIT WITH HIM THERE. HYDRATION STATUS IS GOOD. SKIN IS INTACT. JOSÉ ANTONIO GAVIRIA MD
--- NOTE | 2021-01-02 13:13 | PN ---
DATE OF SERVICE: 12/30/2020 SUBJECTIVE: 89 year old white female hospitalized with acute bronchitis now had developed fever. The patient is feeling better and eating. Her appetite has improved and she is seems to be alert but confused. Mental status still has improved and answering questions appropriately. REVIEW OF SYSTEMS: CONSTITUTIONAL: No night sweats. No fatigue, malaise, lethargy. No fever or chills. HEENT: Eyes: No visual changes. No eye pain. No eye discharge. ENT: No runny nose. No epistaxis. No sinus pain. No sore throat. No odynophagia. No congestion. RESPIRATORY: Mild cough, no congestion. No hemoptysis. No shortness of breath. CARDIOVASCULAR: No angina symptoms. No CHF symptoms. No atypical chest pain for CAD. No palpitations. No PND. No orthopnea. GASTROINTESTINAL: No abdominal pain. No nausea or vomiting. No diarrhea or constipation. No hematemesis. No hematochezia. GENITOURINARY: No urgency. No frequency. No dysuria. No hematuria. No obstructive symptoms. No discharge. No pain. No significant abnormal bleeding. MUSCULOSKELETAL: No musculoskeletal pain; no joint swelling. NEUROLOGICAL: No headache. No neck pain. No syncope. No seizures. No dizziness. PSYCHIATRIC: Not anxious. No depression. No suicidal thoughts. No homicidal thoughts. SKIN: No rash. No lesions. No wounds. ENDOCRINE: No unexplained weight loss. No weight gain. HEMATOLOGIC/LYMPHATIC: No anemia. No purpura. No petechiae. No prolonged or excessive bleeding. No palpable lymph nodes. PHYSICAL EXAMINATION: VITAL SIGNS: Temperature 98, pulse 79, respiratory rate 16, blood pressure 144/83 and pulse ox 98%. HEENT: Head normocephalic, atraumatic. Eyes: Extraocular muscles are intact. Pupils are equal, round and reactive to light and accommodation. Ears: No lesions. Nose appeared normal. Throat: No exudate or erythema. NECK: Supple. No JVD, no carotid bruit. No lymphadenopathy or thyromegaly. LUNGS: Decreased breath sounds but clear to auscultation. Percussion note normal. Chest symmetrical. HEART: S1, S2, no S3. No murmurs. No cyanosis or clubbing. No ascites. Pulses: Dorsalis pedis and posterior tibial pulses +1 to +2 bilaterally. ABDOMEN: Soft. Nontender. Bowel sounds active. No CVA tenderness. No mass felt. EXTREMITIES: No edema. Full range of motion of all extremities, equal. NEUROLOGIC: No focal deficit. Cranial nerves II through XII are grossly intact. No headache. No double vision. SKIN: Not dry. Intact. Turgor - normal. LYMPHATIC: No palpable lymph nodes/no lymphedema. MUSCULOSKELETAL: Normal joints with no swelling. Muscle tone is normal. LABS: Hgb 10.7, hct 32, WBC 16,000 normal differential, creatinine 1.1, BUN 39, potassium 5. ASSESSMENT: 1. Acute bronchitis seems to be resolving. PLAN: 1. The patient has slight fever. Blood cultures and urine culture done, pending. 2. The patient is going to be on Levaquin 3. Continue all the antihypertensive medications. CONDITION: Stable TIME SPENT: More than 30 minutes. Plan and coordination of the patient's care discussed in the presence of nurse. NANCY
--- NOTE | 2021-01-02 14:25 | PN ---
DATE OF SERVICE: 12/31/2020 SUBJECTIVE: 89 year old white female hospitalized originally with acute bronchitis, dehydration and change in the mental status. The patient's condition has improved. The patient was running a fever a couple of days ago. She is COVID negative. She is Prednisone and Levaquin and Symbicort inhaler, Budesonide and Formoterol. REVIEW OF SYSTEMS: CONSTITUTIONAL: No night sweats. No fatigue, malaise, lethargy. No fever or chills. HEENT: Eyes: No visual changes. No eye pain. No eye discharge. ENT: No runny nose. No epistaxis. No sinus pain. No sore throat. No odynophagia. No congestion. RESPIRATORY: No cough, no congestion. No hemoptysis. No shortness of breath. CARDIOVASCULAR: No angina symptoms. No CHF symptoms. No atypical chest pain for CAD. No palpitations. No PND. No orthopnea. GASTROINTESTINAL: No abdominal pain. No nausea or vomiting. No diarrhea or constipation. No hematemesis. No hematochezia. Appetite has improved. GENITOURINARY: No urgency. No frequency. No dysuria. No hematuria. No obstructive symptoms. No discharge. No pain. No significant abnormal bleeding. MUSCULOSKELETAL: No musculoskeletal pain; no joint swelling. NEUROLOGICAL: No headache. No neck pain. No syncope. No seizures. No dizziness. PSYCHIATRIC: Not anxious. No depression. No suicidal thoughts. No homicidal thoughts. SKIN: No rash. No lesions. No wounds. ENDOCRINE: No unexplained weight loss. No weight gain. HEMATOLOGIC/LYMPHATIC: No anemia. No purpura. No petechiae. No prolonged or excessive bleeding. No palpable lymph nodes. PHYSICAL EXAMINATION: VITAL SIGNS: Temperature 98.6, pulse 86, respiratory rate 18, blood pressure 150/87 and pulse ox 97%. HEENT: Head normocephalic, atraumatic. Eyes: Extraocular muscles are intact. Pupils are equal, round and reactive to light and accommodation. Ears: No lesions. Nose appeared normal. Throat: No exudate or erythema. NECK: Supple. No JVD, no carotid bruit. No lymphadenopathy or thyromegaly. LUNGS: Decreased breath sounds but clear to auscultation. Percussion note normal. Chest symmetrical. HEART: S1, S2, no S3. No murmurs. No cyanosis or clubbing. No ascites. Pulses: Dorsalis pedis and posterior tibial pulses +1 to +2 bilaterally. ABDOMEN: Soft. Nontender. Bowel sounds active. No CVA tenderness. No mass felt. EXTREMITIES: No edema. Full range of motion of all extremities, equal. NEUROLOGIC: No focal deficit. Cranial nerves II through XII are grossly intact. No headache. No double vision. She is sitting up and eating on her own. She is very comfortable. SKIN: Not dry. Intact. Turgor - normal. LYMPHATIC: No palpable lymph nodes/no lymphedema. MUSCULOSKELETAL: Normal joints with no swelling. Muscle tone is normal. LABS: Hgb 10.1, hct 30, WBC 16,000 normal differential, creatinine 1.1, BUN 39, potassium 5. ASSESSMENT: 1. Acute bronchitis practically has resolved. 2. Dehydration seems to be resolving 3. Fever couple of days ago has subsided. She is on Levaquin could be from urinary tract infection 4. Change in the mental status 5. Dementia but the dementia now is stable with the patient being very cooperative. Forgetful of recent events but alert but oriented to place and person 6. COVID Negative. TIME SPENT: More than 30 minutes. Plan and coordination of the patient's care discussed in the presence of nurse. NANCY
== END 2021-01-02 13:05 | DRG 202 ==
LOC: LAB 10:43 → MEDSURG A 12:24
PROVIDERS: ADMIT Internal Medicine; ATTEND Internal Medicine
DX: K21.9 Gastro-esophageal reflux disease without esophagitis; F03.90 Unspecified dementia, unspecified severity, without behavioral disturbance, psychotic disturbance, mood disturbance, and anxiety; D51.9 Vitamin B12 deficiency anemia, unspecified; N18.30 Chronic kidney disease, stage 3 unspecified; E86.0 Dehydration; R41.82 Altered mental status, unspecified; E04.2 Nontoxic multinodular goiter; E87.1 Hypo-osmolality and hyponatremia; Z85.51 Personal history of malignant neoplasm of bladder; F41.9 Anxiety disorder, unspecified; Z20.822 Contact with and (suspected) exposure to COVID-19; I70.90 Unspecified atherosclerosis; J40 Bronchitis, not specified as acute or chronic; I10 Essential (primary) hypertension; D64.9 Anemia, unspecified